=== PATIENT | male | born 1960 | race African-American/Black ===

== ENCOUNTER 2019-12-16 12:55 | Inpatient (IN) | payer BC ==
[2019-12-16] MEDS ORDERED: KETOROLAC 15 MG/ML 1 ML VIAL IVP STA (13:18)
--- NOTE | 2019-12-16 13:22 | ED ---
General Adult HPI - General Chief complaint: Skin/Abscess/Foreign Body Stated complaint: Poss R Hand Infection Time Seen by Provider: 12/16/19 13:10 Source: patient, RN notes reviewed, old records reviewed Mode of arrival: ambulatory Limitations: no limitations - History of Present Illness Initial comments: 59-year-old male presenting with right wrist and hand pain. Patient's symptoms began approximately 3 weeks ago with some minimal pain and swelling. He was seen by his primary care physician earlier this week and started on Bactrim. His been on Bactrim for 4 days. He denies fever. He denies constitutional symptoms. Pain is localized to the right wrist. He does not remember any injury or overuse. Patient is a diabetic. - Related Data Home Medications Medication Instructions Recorded Confirmed Insulin Glargine,Hum.rec.anlog 44 units SQ DAILY 12/16/19 12/16/19 [Toujeo Max Solostar] Liraglutide [Victoza 3-Carl] 1.2 mg SQ DAILY 12/16/19 12/16/19 Lisinopril-Hctz 20-25 mg 1 tab PO DAILY 12/16/19 12/16/19 [Zestoretic 20-25] Pravastatin Sodium [Pravachol] 40 mg PO DAILY 12/16/19 12/16/19 Sulfamethox-Tmp 800-160Mg [Bactrim 1 tab PO Q12HR 12/16/19 12/16/19 DS 800-160 mg] glipiZIDE/METFORMIN HCL 2 tab PO 5XD 12/16/19 12/16/19 [glipiZIDE/METFORMIN HCL 5-500 mg] Allergies Allergy/AdvReac Type Severity Reaction Status Date / Time No Known Allergies Allergy Verified 12/16/19 15:07 Review of Systems ROS Statement: Those systems with pertinent positive or pertinent negative responses have been documented in the HPI. ROS Other: All systems not noted in ROS Statement are negative. Past Medical History Past Medical History: Diabetes Mellitus, Hypertension History of Any Multi-Drug Resistant Organisms: None Reported Past Surgical History: Orthopedic Surgery Additional Past Surgical History / Comment(s): yamileth shoulder Past Psychological History: No Psychological Hx Reported Smoking Status: Never smoker Past Alcohol Use History: None Reported Past Drug Use History: None Reported General Exam Limitations: no limitations General appearance: alert, in no apparent distress Head exam: Present: atraumatic, normocephalic Eye exam: Present: normal appearance, PERRL ENT exam: Present: normal exam Neck exam: Present: normal inspection. Absent: tenderness, meningismus Respiratory exam: Present: normal lung sounds bilaterally. Absent: respiratory distress, wheezes Cardiovascular Exam: Present: regular rate, normal rhythm GI/Abdominal exam: Present: soft. Absent: distended, tenderness, guarding Extremities exam: Present: other (Right upper extremity, tenderness over the palmar surface of the right wrist, and range of motion at the wrist elicits severe pain. Range of motion of the fingers within normal limits. There is soft tissue swelling over the wrist as well.) Neurological exam: Present: alert, oriented X3, CN II-XII intact. Absent: motor sensory deficit Psychiatric exam: Present: normal affect, normal mood Skin exam: Present: warm, dry, other. Absent: cyanosis, diaphoretic Course Vital Signs 12/16/19 13:06 Temperature 98.2 F Pulse Rate 88 Respiratory 20 Rate Blood Pressure 173/84 O2 Sat by Pulse 99 Oximetry Medical Decision Making - Medical Decision Making 59-year-old male presenting with worsening right wrist pain, patient is started on antibiotics approximately 5 days ago. No fever. Patient is nontoxic with stable vitals. He has mild leukocytosis 11.5, mild hyperglycemia and elevated serum creatinine of 2.0. He has a elevated CRP at 18. LFTs been on antibiotics was still concern for either septic arthritis or deep space infection. There is no drainable abscess on exam. X-ray negative for fracture dislocation, no acute bony abnormality. Ultrasound negative for DVT but does show fluid collection that is likely the cause of the patient's pain. Case is discussed with orthopedics and patient is evaluated by Richmond Bernal, case discussed with the admitting physician Dr. Velasquez agreeable with admission with both orthopedics and infectious disease on consult. IV antibiotics have been initiated. - Lab Data Result diagrams: 12/16/19 14:02 12/16/19 14:02 Lab Results 12/16/19 12/16/19 12/16/19 Range/Units 14:02 14:02 14:02 WBC 11.5 H (3.8-10.6) k/uL RBC 4.54 (4.30-5.90) m/uL Hgb 12.6 L (13.0-17.5) gm/dL Hct 38.3 L (39.0-53.0) % MCV 84.3 (80.0-100.0) fL MCH 27.7 (25.0-35.0) pg MCHC 32.9 (31.0-37.0) g/dL RDW 13.3 (11.5-15.5) % Plt Count 348 (150-450) k/uL Neutrophils % 71 % Lymphocytes % 20 % Monocytes % 3 % Eosinophils % 5 % Basophils % 1 % Neutrophils # 8.2 H (1.3-7.7) k/uL Lymphocytes # 2.2 (1.0-4.8) k/uL Monocytes # 0.3 (0-1.0) k/uL Eosinophils # 0.6 (0-0.7) k/uL Basophils # 0.1 (0-0.2) k/uL Sodium 136 L (137-145) mmol/L Potassium 4.7 (3.5-5.1) mmol/L Chloride 102 (98-107) mmol/L Carbon Dioxide 24 (22-30) mmol/L Anion Gap 10 mmol/L BUN 20 (9-20) mg/dL Creatinine 2.00 H (0.66-1.25) mg/dL Est GFR (CKD-EPI)AfAm 41 (>60 ml/min/1.73 sqM) Est GFR (CKD-EPI)NonAf 36 (>60 ml/min/1.73 sqM) Glucose 240 H (74-99) mg/dL Plasma Lactic Acid Kyree 1.4 (0.7-2.0) mmol/L Calcium 9.7 (8.4-10.2) mg/dL Magnesium 2.1 (1.6-2.3) mg/dL Total Bilirubin 0.4 (0.2-1.3) mg/dL AST 20 (17-59) U/L ALT 15 (4-49) U/L Alkaline Phosphatase 100 (38-126) U/L C-Reactive Protein 18.5 H (<10.0) mg/L Total Protein 7.2 (6.3-8.2) g/dL Albumin 4.2 (3.5-5.0) g/dL Disposition Clinical Impression: Wrist pain, acute, Septic arthritis Disposition: ADMITTED IP TO THIS HOSP Condition: Stable Is patient prescribed a controlled substance at d/c from ED?: No Referrals: Nestor Velasquez DO [Primary Care Provider] - 1-2 days Decision to Admit Reason: Admit from EC Decision Date: 12/16/19 Decision Time: 15:27
--- NOTE | 2019-12-16 13:49 | XR ---
EXAMINATION TYPE: XR wrist complete RT DATE OF EXAM: 12/16/2019 CLINICAL HISTORY: Wrist pain and swelling for 3 days. No known injury. TECHNIQUE: Frontal, lateral and oblique images of the right wrist are obtained. COMPARISON: None FINDINGS: There is no acute fracture/dislocation evident in the right wrist. The joint spaces in th e right wrist appear within normal limits. No significant change change. Normal osseous mineralizatio n. Calcified vascular atherosclerotic disease. The overlying soft tissue appears unremarkable. IMPRESSION: There is no acute fracture or dislocation in the right wrist.
[2019-12-16 14:23] LABS: Basophils # (A) 0.1 k/uL (0-0.2); Basophils % (A) 1 %; Eosinophils # (A) 0.6 k/uL (0-0.7); Eosinophils % (A) 5 %; HCT 38.3 % (39.0-53.0); HGB 12.6 gm/dL (13.0-17.5); Lymphocytes # (A) 2.2 k/uL (1.0-4.8); Lymphocytes % (A) 20 %; MCH 27.7 pg (25.0-35.0); MCHC 32.9 g/dL (31.0-37.0); MCV 84.3 fL (80.0-100.0); Mean Platelet Volume 7.8; Monocytes # (A) 0.3 k/uL (0-1.0); Monocytes % (A) 3 %; Neutrophils # (A) 8.2 k/uL (1.3-7.7); Neutrophils % (A) 71 %; Platelet Count 348 k/uL (150-450); RBC 4.54 m/uL (4.30-5.90); RDW 13.3 % (11.5-15.5); WBC 11.5 k/uL (3.8-10.6)
[2019-12-16 14:35] LABS: Albumin 4.2 g/dL (3.5-5.0); C Reactive Protein 18.5 mg/L (<10.0); Calcium 9.7 mg/dL (8.4-10.2); Magnesium 2.1 mg/dL (1.6-2.3); Potassium 4.7 mmol/L (3.5-5.1); Total Bilirubin 0.4 mg/dL (0.2-1.3); Total Protein 7.2 g/dL (6.3-8.2)
[2019-12-16] MEDS ORDERED: SODIUM CHLORIDE 0.9% 500 ML 500 ML IV ONE (14:38)
[2019-12-16] MEDS ORDERED: HYDROmorphone 0.5 MG/0.5 ML SYRINGE IVP PRN (15:11)
[2019-12-16] MEDS ORDERED: NALOXONE 0.4 MG/ML 1 ML VIAL IV PRN (15:11)
[2019-12-16] MEDS ORDERED: CLINDAMYCIN 600 MG in DEXTROSE 5% IN WATER 50 ML IVPB STA ×2 (15:11)
--- NOTE | 2019-12-16 15:13 | US ---
EXAMINATION TYPE: US venous doppler duplex UE RT DATE OF EXAM: 12/16/2019 COMPARISON: NONE CLINICAL HISTORY: Arm swelling. Patient denies arm swelling, just hand right swelling x 2 weeks witho ut trauma, surgery or IV here. SIDE PERFORMED: Right Right Arm: Normal flow, compressibility, and vascular waveforms. Negative for deep venous thrombosis. Negative for reversible venous thrombosis. At the volar right hand, ulnar aspect of the base, there is subcutaneous edema and subcutaneous fluid collection measuring approximately 3.2 x 2.0 x 0.6 cm. IMPRESSION: 1. No evidence of deep or superficial venous thrombosis. 2. At the ulnar side of the volar base of the hand, there is subcutaneous edema and subcutaneous foca l fluid collection measuring approximately 3.2 x 2.0 x 0.6 cm. Contrast-enhanced CT examination of th e wrist may be of benefit.
[2019-12-16] MEDS ORDERED: VANCOMYCIN IV PER PHARMACY 1 EACH MISC MISCELLANE PRN (15:15)
[2019-12-16] MEDS ORDERED: VANCOMYCIN 1,750 MG in SODIUM CHLORIDE 0.9% 500 ML 500 ML IVPB ONE (15:30)
--- NOTE | 2019-12-16 15:46 | P.CNOR ---
History of Present Illness - [facility] Consult date: 12/16/19 Consult reason: joint pain History of present illness: Patient is a 59-year-old male who presented to [facility] today with regards to pain involving his right wrist. Patient admits over the last 3 weeks she's had swelling and discomfort involving the right wrist. She denies any history of trauma or change in physical activity. He was evaluated by his primary care doctor earlier this week and started on Bactrim oral tablets. He states that the swelling has improved a little bit since they on antibiotics. Patient denies any previous surgeries on the right upper extremity. He denies any numbness or tingling involving the right upper extremity or left upper extremity. He denies any fevers or chills at this time. He denies any nausea or vomiting, stomach discomfort, chest pain or shortness of breath. I was contacted by the emergency room staff regarding the patient, there is con cern of possible septic arthritis involving the right wrist versus inflammatory arthropathy. Review of Systems Constitutional: Reports as per [facility] Past Medical History Past Medical History: Diabetes Mellitus, Hypertension History of Any Multi-Drug Resistant Organisms: None Reported Past Surgical History: Orthopedic Surgery Additional Past Surgical History / Comment(s): yamileth shoulder Past Psychological History: No Psychological Hx Reported Smoking Status: Never smoker Past Alcohol Use History: None Reported Past Drug Use History: None Reported Medications and Allergies Home Medications Medication Instructions Recorded Confirmed Type Insulin Glargine,Hum.rec.anlog 44 units SQ DAILY 12/16/19 12/16/19 History [Sandra Reddy] Liraglutide [Victoza 3-Carl] 1.2 mg SQ DAILY 12/16/19 12/16/19 History Lisinopril-Hctz 20-25 mg 1 tab PO DAILY 12/16/19 12/16/19 History [Zestoretic 20-25] Pravastatin Sodium [Pravachol] 40 mg PO DAILY 12/16/19 12/16/19 History Sulfamethox-Tmp 800-160Mg [Bactrim 1 tab PO Q12HR 12/16/19 12/16/19 History DS 800-160 mg] glipiZIDE/METFORMIN HCL 2 tab PO 5XD 12/16/19 12/16/19 History [glipiZIDE/METFORMIN HCL 5-500 mg] Allergies Allergy/AdvReac Type Severity Reaction Status Date / Time No Known Allergies Allergy Verified 12/16/19 15:07 Physical Examination Right upper extremity: No obvious open lesions or sores are present throughout the extremity There is obvious swelling and skin discoloration on the volar aspect of the distal wrist at the radiocarpal and ulnar carpal joint. There is also swelling on the dorsal aspect of the hand between the thenar and hyperthenar eminence. Tenderness with palpation in those areas as noted patient is able to wiggle all the fingers with no difficulty, he is able to make a full fist There are no obvious skin changes or areas of soft tissue swelling on the dorsal aspect of the hand Sensory exam to light touch throughout the extremity is intact Radial and ulnar pulses are 2+ Results - Labs Labs: Abnormal Lab Results - Last 24 Hours (Table) 12/16/19 12/16/19 Range/Units 14:02 14:02 WBC 11.5 H (3.8-10.6) k/uL Hgb 12.6 L (13.0-17.5) gm/dL Hct 38.3 L (39.0-53.0) % Neutrophils # 8.2 H (1.3-7.7) k/uL Sodium 136 L (137-145) mmol/L Creatinine 2.00 H (0.66-1.25) mg/dL Glucose 240 H (74-99) mg/dL C-Reactive Protein 18.5 H (<10.0) mg/L H & H 12/16/19 Range/Units 14:02 Hgb 12.6 L (13.0-17.5) gm/dL Hct 38.3 L (39.0-53.0) % Result Diagrams: 12/16/19 14:02 12/16/19 14:02 - Diagnostic results Wrist/Hand x-ray: report reviewed, image reviewed Assessment and Plan Assessment: Right wrist pain/swelling Possible right wrist septic arthritis versus inflammatory arthropathy Other medical comorbidities Plan: Imaging: X-rays of the right hand were reviewed along with the report, no acute fractures or dislocations are noted. No obvious foreign bodies were appreciated Doppler of the right upper extremity demonstrated a fluid collection at the ulnar side of the volar base of the hand Plan: I was able to discuss the case, including most physical exam findings, labs and imaging studies my attending Dr. Saldana. Plan this point is to admit the patient to the hospital and under internal medicine, our orthopedic team and infectious disease will be placed on consult. MRI with and without contrast will be ordered of the right wrist Uric acid level will be checked Broad-spectrum IV antibiotics until infectious disease recommendations Patient will be made nothing by mouth after midnight prophylaxis Other medical specialty recommendations Further recommendations to follow
[2019-12-16] MEDS: SODIUM CHLORIDE 0.9% 1,000 ML IV SCH (16:02)
[2019-12-16 16:54] LABS: Glucose,Whole Blood 207 mg/dL (75-99)
[2019-12-16] MEDS ORDERED: glipiZIDE 10 MG TAB PO ONE (19:30)
[2019-12-16] MEDS ORDERED: metFORMIN 500 MG TAB PO ONE (19:30)
[2019-12-16] MEDS: ONDANSETRON 4 MG/2 ML VIAL IVP PRN (19:59)
[2019-12-16] MEDS ORDERED: NON FORMULARY DRUG (Glipizide/Metformin Hcl [Glipizide/Metformin Hcl 5-500 Mg] 1 EACH Tabl PO SCH (20:00)
[2019-12-16] MEDS ORDERED: GLIPIZIDE PO SCH (22:00)
[2019-12-16] MEDS ORDERED: METFORMIN HCL PO SCH (22:00)
[2019-12-16] MEDS ORDERED: [UNRECOGNIZED DRUG - OTHER] PO SCH (22:00)
--- NOTE | 2019-12-16 23:58 | P.CONS ---
History of Present Illness - Reason for Consult Consult date: 12/16/19 Left wrist infection Requesting physician: Lane Guillen - Chief Complaint Left wrist pain and swelling x weeks - History of Present Illness Patient is a 59 year old -[place] male presenting to the ER at [facility] for evaluation of the right wrist and hand pain that has been going on for the last few weeks patient denies having any history of trauma to the area or any fall patient mentioning there was any area of swelling on the palmar aspect of his right hand at the base of the thumb and subsequently noticed her having pain and swelling to the wrist area with some extension on the dorsum aspect of his right hand patient describing the pain to be throbbing intensity is almost 6-7 out of 10 and no radiation currently do not have any of her wound or any drainage did have some chills but denies high-grade fever with these symptoms the patient was evaluated by the ER physician on arrival to the ER, the patient was afebrile he did have mildly elevated white count and elevated CRP patient did have x-rays of the hand and wrist which was negative patient did have ultrasound which was negative for DVT however on the ulnar side of the volar base of the hand patient was noticed to have 3. 2X2.0X 0.6 cm fluid collection with concern for possible abscess patient has been started on vancomycin and admitted to the hospital orthopedics has seen the patient and planning for MRI tomorrow infectious disease was consulted for further man agement of antibiotic therapy Review of Systems Positive point has been mentioned in the HPI rest of the systems are negative Past Medical History Past Medical History: Diabetes Mellitus, Hypertension History of Any Multi-Drug Resistant Organisms: None Reported Past Surgical History: Orthopedic Surgery Additional Past Surgical History / Comment(s): yamileth shoulder, 2001 r knee surgery Past Anesthesia/Blood Transfusion Reactions: No Reported Reaction Past Psychological History: No Psychological Hx Reported Smoking Status: Never smoker Past Alcohol Use History: None Reported Past Drug Use History: None Reported - Past Family History Mother Family Medical History: Diabetes Mellitus Medications and Allergies Home Medications Medication Instructions Recorded Confirmed Type Insulin Glargine,Hum.rec.anlog 44 units SQ DAILY 12/16/19 12/16/19 History [Toujeo Max Solostar] Liraglutide [Victoza 3-Carl] 1.2 mg SQ DAILY 12/16/19 12/16/19 History Lisinopril-Hctz 20-25 mg 1 tab PO DAILY 12/16/19 12/16/19 History [Zestoretic 20-25] Pravastatin Sodium [Pravachol] 40 mg PO DAILY 12/16/19 12/16/19 History Sulfamethox-Tmp 800-160Mg [Bactrim 1 tab PO Q12HR 12/16/19 12/16/19 History DS 800-160 mg] glipiZIDE/METFORMIN HCL 2 tab PO 5XD 12/16/19 12/16/19 History [glipiZIDE/METFORMIN HCL 5-500 mg] Allergies Allergy/AdvReac Type Severity Reaction Status Date / Time No Known Allergies Allergy Verified 12/16/19 15:07 Physical Exam Vitals: Vital Signs Temp Pulse Pulse Resp BP BP Pulse Ox 12/16/19 16:24 99 F 76 18 168/83 100 12/16/19 15:45 99.4 F 75 18 178/98 100 12/16/19 13:06 98.2 F 88 20 173/84 99 Intake and Output 12/16/19 12/16/19 12/16/19 06:59 14:59 22:59 Other: Weight 110.677 kg 110.677 kg GENERAL DESCRIPTION: Middle-aged male lying in bed, no distress. No tachypnea or accessory muscle of respiration use. HEENT: Shows Pallor , no scleral icterus. Oral mucous membrane is dry. No pharyngeal erythema or thrush NECK: Trachea central, no thyromegaly. LUNGS: Unlabored breathing. Clear to auscultation anteriorly. 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 HEART: S1, S2, regular rate and rhythm. No loud murmur ABDOMEN: Soft, no tenderness , guarding or rigidity, no organomegaly EXTREMITIES: Right wrist area currently with no open wound minimal swelling no redness no drainage SKIN: No rash, no masses palpable. NEUROLOGICAL: The patient is awake, alert, oriented x3, mood and affect normal. Results CBC & Chem 7: 12/16/19 14:02 12/16/19 14:02 Labs: Abnormal Lab Results - Last 24 Hours (Table) 12/16/19 12/16/19 12/16/19 Range/Units 14:02 14:02 16:53 WBC 11.5 H (3.8-10.6) k/uL Hgb 12.6 L (13.0-17.5) gm/dL Hct 38.3 L (39.0-53.0) % Neutrophils # 8.2 H (1.3-7.7) k/uL Sodium 136 L (137-145) mmol/L Creatinine 2.00 H (0.66-1.25) mg/dL Glucose 240 H (74-99) mg/dL POC Glucose (mg/dL) 207 H (75-99) mg/dL C-Reactive Protein 18.5 H (<10.0) mg/L Assessment and Plan Assessment: 1- patient presented to the hospital with right wrist pain and swelling in this patient did have mildly elevated white count and CRP and abnormal ultrasound with evidence of fluid collection concerning for possible abscess need to cover for the gram-positive skin nely with a likely pathogen and is failing outpatient oral Bactrim DS therapy (1) Septic arthritis Current Visit: Yes Status: Acute Code(s): M00.9 - PYOGENIC ARTHRITIS, UNSPECIFIED SNOMED Code(s): 682426278 (2) Wrist pain, acute Current Visit: Yes Status: Acute Code(s): M25.539 - PAIN IN UNSPECIFIED W RIST SNOMED Code(s): 37470773 Plan: 1- await MRI of the right wrist 2-await possible surgical drainage and the fluid should be sent for cultures 3-Vancomycin pharmacy to dose target trough of 15 while watching kidney function and Vanco trough closely We will follow on clinical condition and cultures to further adjust medication if needed Thank you for this consultation will follow this patient with you
[2019-12-17] MEDS: SODIUM CHLORIDE 0.9% 1,000 ML IV SCH ×2 (05:52→17:54)
[2019-12-17 07:50] LABS: Glucose,Whole Blood 224 mg/dL (75-99)
[2019-12-17] MEDS: (Liraglutide [Victoza 3-Pak] 0.6 MG/0.1 ML Pen.Injctr) SQ SCH (08:07)
[2019-12-17] MEDS: INSULIN DETEMIR (LEVEMIR) 100 UNIT/ML SYR SQ SCH (08:15)
[2019-12-17] MEDS: PRAVASTATIN SODIUM 40 MG TAB PO SCH (08:15)
[2019-12-17] MEDS: lisinopriL 20 MG TAB PO SCH (08:15)
[2019-12-17] MEDS ORDERED: LISINOPRIL-HCTZ 20-25 MG 1 EACH TAB PO SCH (09:00)
[2019-12-17 11:56] LABS: Glucose,Whole Blood 180 mg/dL (75-99)
[2019-12-17] MEDS: INSULIN ASPART (NovoLOG) 100 UNIT/ML VIAL SQ SCH ×3 (12:52→20:38)
--- NOTE | 2019-12-17 14:23 | P.HPIM ---
History of Present Illness H&P Date: 12/17/19 Chief Complaint: Right wrist/ palm edema, induration Is a 59-year-old gentleman with medical history of diabetes mellitus, hypertension, obesity admitted with worsening right wrist and hand edema. Reports started 3 weeks ago. Proceeded to his PCP's office on Friday, received Rocephin 1 g injection and started on Bactrim. Uric acid reported as negative from PCP office. Extremity edema worsened. Denies numbness or tingling. Positive fine motor of affected extremity. Denies pain. Denies fever. Denies trauma. T-max 99.4, and ABC 11.5. Creatinine 2.09. CRP elevated, 18. X-ray reported no acute fracture or dislocation of the right wrist with overlying soft tissue unremarkable. Venous Doppler of right upper extremity reported no evidence of DVT or superficial venous thrombus, ulnar side of the volar base of hand, subcutaneous edema, subcutaneous focal fluid collection measuring 3.2 x 2.0 x 0.6 cm. IV antibiotics initiated. Review of Systems Constitutional: Denied any fatigue denied any fever. Cardio vascular: denied any chest pain, palpitations Gastrointestinal denied any nausea vomiting Pulmonary: Denied any shortness of breath cough Neurologic denied any new focal deficits ROS Statement: Those systems with pertinent positive or pertinent negative responses have been documented in the HPI. ROS Other: All systems not noted in ROS Statement are negative. Past Medical History Past Medical History: Diabetes Mellitus, Hypertension History of Any Multi-Drug Resistant Organisms: None Reported Past Surgical History: Orthopedic Surgery Additional Past Surgical History / Comment(s): yamileth shoulder, 2001 r knee surgery Past Anesthesia/Blood Transfusion Reactions: No Reported Reaction Past Psychological History: No Psychological Hx Reported Smoking Status: Never smoker Past Alcohol Use History: None Reported Past Drug Use History: None Reported - Past Family History Mother Family Medical History: Diabetes Mellitus Medications and Allergies Home Medications Medication Instructions Recorded Confirmed Type Insulin Glargine,Hum.rec.anlog 44 units SQ DAILY 12/16/19 12/16/19 History [Toujeo Mt Solostar] Liraglutide [Victoza 3-Carl] 1.2 mg SQ DAILY 12/16/19 12/16/19 History Lisinopril-Hctz 20-25 mg 1 tab PO DAILY 12/16/19 12/16/19 History [Zestoretic 20-25] Pravastatin Sodium [Pravachol] 40 mg PO DAILY 12/16/19 12/16/19 History Sulfamethox-Tmp 800-160Mg [Bactrim 1 tab PO Q12HR 12/16/19 12/16/19 History DS 800-160 mg] glipiZIDE/METFORMIN HCL 2 tab PO 5XD 12/16/19 12/16/19 History [glipiZIDE/METFORMIN HCL 5-500 mg] Allergies Allergy/AdvReac Type Severity Reaction Status Date / Time No Known Allergies Allergy Verified 12/16/19 15:07 Physical Exam Vitals: Vital Signs Temp Pulse Pulse Resp BP BP Pulse Ox 12/17/19 04:53 98.1 F 77 18 162/89 97 12/17/19 00:00 16 12/16/19 19:55 98.2 F 67 16 190/94 96 12/16/19 16:24 99 F 76 18 168/83 100 12/16/19 15:45 99.4 F 75 18 178/98 100 12/16/19 13:06 98.2 F 88 20 173/84 99 Intake and Output 12/16/19 12/17/19 12/17/19 22:59 06:59 14:59 Intake Total 660 600 Output Total 200 Balance 460 600 Intake: Intake, IV Titration 300 600 Amount Sodium Chloride 0.9% 1, 300 600 000 ml @ 75 mls/hr IV . [id number] VIC Rx#:[id number] Oral 360 Output: Oral Regurgitation 200 Other: # Voids 1 1 Weight 110.677 kg PHYSICAL EXAM: VITAL SIGNS: As above GENERAL: Sitting up in bed, no acute distress HEENT: Conjunctivae normal. eyes normal. NECK: No JVD. No thyroid enlargement. No LNs CARDIOVASCULAR: S1, S2 regular.. No murmur RESPIRATION: Breath sounds diminished in the bases. No rhonchi or crackles. ABDOMEN: Soft, nontender . No guarding. no masses palpable. Positive Bowel sounds. EXTREMITIES: Right wrist and hand edema,palm induration without open wounds, with fine motor intact. Positive radial pulse. Capillary refill less than 2 seconds.Bilateral lower extremities with no edema. no swelling. PSYCHIATRY: Alert and oriented X3, mood and affect normal. NERVOUS SYSTEM: Cranial N 2-12 grossly normal. Moves all 4 limbs. No focal deficits. Strength and sensation grossly intact.. Skin: Warm and dry, no rash. Lymphatic system. No LN neck axilla. Results CBC & Chem 7: 12/16/19 14:02 12/16/19 14:02 Labs: Abnormal Lab Results - Last 24 Hours (Table) 12/16/19 12/16/19 12/16/19 Range/Units 14:02 14:02 16:53 WBC 11.5 H (3.8-10.6) k/uL Hgb 12.6 L (13.0-17.5) gm/dL Hct 38.3 L (39.0-53.0) % Neutrophils # 8.2 H (1.3-7.7) k/uL Sodium 136 L (137-145) mmol/L Creatinine 2.00 H (0.66-1.25) mg/dL Glucose 240 H (74-99) mg/dL POC Glucose (mg/dL) 207 H (75-99) mg/dL C-Reactive Protein 18.5 H (<10.0) mg/L 12/17/19 Range/Units 07:48 WBC (3.8-10.6) k/uL Hgb (13.0-17.5) gm/dL Hct (39.0-53.0) % Neutrophils # (1.3-7.7) k/uL Sodium (137-145) mmol/L Creatinine (0.66-1.25) mg/dL Glucose (74-99) mg/dL POC Glucose (mg/dL) 224 H (75-99) mg/dL C-Reactive Protein (<10.0) mg/L Thrombosis Risk Factor Assmnt - Choose All That Apply Each Factor Represents 1 point: Obesity (BMI >25) Thrombosis Risk Factor Assessment Total Risk Factor Score: 1 Thrombosis Risk Factor Assessment Level: Low Risk Assessment and Plan Assessment: Sepsis secondary to worsening subacute right wrist edema , possible septic arthritis, possible abscess, failed outpatient treatment Leukocytosis secondary to above Acute renal failure, possibly medication induced, patient had been on Bactrim Diabetes mellitus Hypertension Obesity, BMI 36 Plan: Continue on current medication regime ,monitoring and symptomatic treatment. IV fluid hydration .Potential I&D with orthopedics pending MRI of hand and wrist. Maintained on IV antibiotics as per ID. GI and DVT prophylaxis in place. Home meds reviewed and resumed accordingly. Avoid nephrotoxic agents. The impression and plan of care has been dictated as directed. : I performed a history and examination of this patient, discussed the same with the dictator. I agree with the dictator's note ,documented as a scribe. Any additional findings or plans will be noted.
[2019-12-17] MEDS ORDERED: PANTOPRAZOLE 40 MG/10 ML VIAL IVP SCH (14:24)
[2019-12-17] MEDS ORDERED: IV FLUID CONTINUATION 850 ML IV ONE (14:47)
[2019-12-17 14:54] LABS: Glucose,Whole Blood 161 mg/dL (75-99)
--- NOTE | 2019-12-17 15:08 | P.PN ---
Progress Note - Text Progress Note Date: 12/17/19 Orthopedic Surgery Risk Review Huber Mason is a 59-year-old male presenting for evaluation of sudden onset left hand and wrist pain, pain with motion and swelling over the carpal tunnel. It was my pleasure to have seen and examined Huber Mason. In our visit today we have had a chance to go over subjective complaints, physical examination findings and treatments including the natural course history without intervention and various interventional options. his imaging demonstrates loculated subcu edema over the hyperthenar evidence with possible tracking into the carpal tunnel however there is no large fluid collection that can be seen.. On physical exam, Huber Mason demonstrates pain with motion of the hand and wrist with exquisite tenderness to palpation over the hyperthenar eminence and subcu region of the carpal tunnel, which is NV intact at this time. I have explained to the patient that this fracture needs stabilization. Based on the patients imaging, physical exam, and the rapid progression and disabling nature of her symptoms, at this time I recommend surgery in the form or a: Incision and debridement with possible carpal tunnel release right hand I discussed the risk and benefits of this procedure at length with Huber Mason and his . Questions were invited and answered, and the patient wishes to proceed as outlined below. Currently, I am recommendin. Incision and drainage of right hand hyperthenar eminence with possible carpal tunnel release right 2. Review of surgical risks and benefits as well as an educational packet on the proposed surgical procedure. Risks: All surgical procedures come with inherent risks, including those related to positioning, anesthesia, intraoperative findings, and postoperative complications. It is important to understand that surgery does not come with any guarantee of a successful outcome as complications and adverse events are always possible. The patient was given a handout discussing the surgical procedure and risks associated with the intervention, both of which were discussed with the patient. These risks include but are not limited to the following: - Experiencing same, different or even worse symptoms compared to before surgery. - Requiring further surgery or other forms of treatment presently or at some time in the future . - On an extreme but fortunately relatively rare basis severe complication such as blindness, stroke, heart attack, temporary and/or permanent nerve injury, paralysis, coma, or may occur, sometimes without known explanation. - Surgical complications may include but are not limited to risk of infection, fluid accumulation in the surgical dissection site, including a seroma or hematoma, that requires additional surgery, wound drainage, bleeding, new numbness or weakness, vision changes/loss, spinal fluid leakage, non-healing and/or infected incision, headaches, difficulty or inability to swallow, hoarseness, hemopneumothorax, pneumothorax, injury to nerves, spinal cord, blood vessels, lymphatics or other vital organs (i.e., bowel injury, injury to the great vessels); heterotopic bone formation; complications related to the hardware such as screws, rods, including misplaced hardware, device failure, hardware fracture/breakage, or hardware loosening; retained surgical instrumentations or devices and the need for further surgery. - Medical risks of the planned surgery include but are not limited to generalized Infections to the whole body or local areas outside of the surgical site (sepsis), heart attack, bleeding, anaphylaxis, meningitis, seizure, epilepsy, hearing loss, burn silva, laceration of the head or other areas of the body, bruising, hypersensitivity of the skin, bladder over distension; allergic reaction; shoulder injury related to positioning; fat, blood and air clots to other areas of the body like heart, lungs, brain; failure of internal organs such as lungs, kidneys, liver and excessive bleeding. If blood transfusions are necessary, note that transfusions may cause intolerance reactions such as anaphylaxis or other complex reactions. Despite best efforts, the results of surgery might not heal in terms of bone, soft tissues such as skin, fascia, ligaments, and joints. [facility] is an educational center that serves as a training facility for physician assistants, nurses, orthopedic residents and fellows. Residents are physicians who are completing their surgical intensive training following medical school. They assist in the operating room with direct supervision of the attending surgeons. Leonidas are surgeons who have completed their training and eligible for board certification. They have opted for an elective year of more specialized training in their field. They assist in the operating room under the supervision of the attending surgeons. Physician assistants are dc dically trained surgical providers who function in the outpatient, inpatient, and operating room setting under the direct supervision of the attending surgeon. [facility] has multiple operating rooms with single and overlapping rooms running daily. They currently function under the required guidelines as produced by the [facility] Finance Committee with regards to the overlapping rooms and will continue to comply with changes to this policy as they occur. The requirements include and are complied with as follows: (1) the critical portions of the overlapping rooms will not occur at the same time, (2) the attending physician will be physically present during the critical portions of the procedure and immediately available during the entire case, and (3) a back-up attending is designated should the primary attending not be immediately available. The patient has had a chance to review all the listed information, has been given print outs detailing this information, and has had all his/her questions answered to their satisfaction. It was my pleasure to have seen and examined Huber Mason. In our visit today we have had a chance to go over my understanding of our patient's current condition, the natural course history without intervention and various interventional options. Questions were invited and answered, and the patient wishes to proceed as outlined above. I have seen and examined the patient for 25 minutes and we have spent more than 50% of the time in repeat and detailed counseling about the patient's condition, its natural course history with out and as much as can be predicted with surgery and re-review of various surgical treatment options. We discussed at length that while there is not a defined fluid collection there is a lot of subcutaneous edema in this area and is difficult to determine whether this is just loculated portions of an abscess or if it is simply edema. The patient is a lot of pain in this area however no pain over the carpal tunnel however he does not have any neurologic symptoms at this time. I discussed with him that we may not find anything and he still would like to proceed with the procedure. In conclusion, Huber Mason requested we proceed with the above suggested surgery and are willing to accept risks and limitations of the suggested surgery as nature of the disease process and our best attempts at treatment for the condition. Thank you again for allowing us to be part of your patient's care. Please don't hesitate to contact me if you have any further questions. Signed and authenticated by: Mat Covarrubias [facility] [address] [address]
[2019-12-17] MEDS ORDERED: LIDOCAINE 1% INJ 10MG/ML (20 ML MDV) ONE (15:19)
[2019-12-17] MEDS ORDERED: PROPOFOL 10 MG/ML 20 ML VIAL IV ONE (15:19)
[2019-12-17] MEDS ORDERED: MIDAZOLAM 2 MG/2 ML VIAL ONE (15:19)
[2019-12-17] MEDS ORDERED: fentaNYL (PF) 50 MCG/ML 2 ML AMP ONE (15:19)
[2019-12-17] MEDS ORDERED: BUPIVACAINE (PF) 0.5% 30 ML VIAL SQ ONE (15:25)
[2019-12-17 16:25] LABS: Glucose,Whole Blood 137 mg/dL (75-99)
[2019-12-17] MEDS ORDERED: KETOROLAC 15 MG/ML 1 ML VIAL IVP ONE (16:37)
[2019-12-17] MEDS: HYDROmorphone 1 MG/ML 1 ML SYRINGE IVP ONE ×2 (16:38→16:44)
[2019-12-17] MEDS ORDERED: hydrALAZINE HCL 20 MG/ML 1 ML VIAL IVP ONE (16:47)
--- NOTE | 2019-12-17 16:59 | MR ---
EXAMINATION TYPE: MR wrist RT wo con DATE OF EXAM: 12/17/2019 COMPARISON: None HISTORY: r/o wrist abscess Multiplanar multiecho imaging of the right wrist was performed without contrast. FINDINGS: There is diffuse subcutaneous edema around the carpus. Soft tissue swelling is more on the anterior a spect. The flexor and extensor tendons of the hand and wrist appear intact. There is no evidence of any significant wrist joint effusion. There is no evidence of a fracture. Int ercarpal joint spaces are fairly normal. The triangular cartilage appears intact. I see no focal bone destruction. The proximal metacarpals are intact. There are a few tiny degenerative cysts in the car pal bones in the lunate and trapezoid and triquetrum. I see no evidence of a discrete fluid collectio n to suggest an abscess. IMPRESSION: Diffuse subcutaneous edema around the carpus and proximal metacarpals consistent with cellulitis. Small degenerative cysts in the carpal bones. No evidence of any significant arthritic disease. No fr acture. No sign of osteomyelitis. No evidence of an abscess.
--- NOTE | 2019-12-17 17:03 | P.OP ---
Date of Procedure: 12/17/19 Preoperative Diagnosis: Right hand hyperthenar swelling and possible abscess, possible carpal tunnel fluid Postoperative Diagnosis: Right hand hyperthenar abscess, [place] tunnel involvement Procedure(s) Performed: 1. Incision and drainage of hyperthenar abscess right hand with a knife and curet and irrigation of skin and soft tissue. 2. Carpal tunnel release right Implants: None Anesthesia: MAC Surgeon: Mat Saldana Estimated Blood Loss (ml): 10 IV fluids (ml): 100 Urine output (ml): 0 Pathology: other (2 cultures with 1 tissue culture) Condition: stable Disposition: PACU Indications for Procedure: Patient is a 59 year old -[place] male presenting to the ER at [facility] for evaluation of the right wrist and hand pain that has been going on for the last few weeks patient denies having any history of trauma to the area or any fall patient mentioning there was any area of swelling on the palmar aspect of his right hand at the base of the thumb and subsequently no ticed her having pain and swelling to the wrist area with some extension on the dorsum aspect of his right hand patient describing the pain to be throbbing intensity is almost 6-7 out of 10 and no radiation currently do not have any of her wound or any drainage did have some chills but denies high-grade fever with these symptoms the patient was evaluated by the ER physician on arrival to the ER, the patient was afebrile he did have mildly elevated white count and elevated CRP patient did have x-rays of the hand and wrist which was negative patient did have ultrasound which was negative for DVT however on the ulnar side of the volar base of the hand patient was noticed to have 3. 2X2.0X 0.6 cm fluid collection with concern for possible abscess patient has been started on vancomycin and admitted to the hospital orthopedics has seen the patient and planning for MRI tomorrow infectious disease was consulted for further management of antibiotic therapy Operative Findings: Small amount of purulent material found in the hyperthenar region upon incision. Necrotic fat white tissue also seen. Carpal tunnel showed fluid collection however this did not show purulence. Transverse carpal ligament was extensively hypertrophied. Description of Procedure: The patient was seen and examined in the preoperative area. All preoperative protocols were followed. Informed consent was obtained risks and benefits of the procedure were discussed at length. Risks including bleeding infection damage to the surrounding tissue and risk of reoperation were discussed with the patient. Risk of anesthesia up to and including was a discussed with the patient. These are outlined in the risk reviewed. They were willing to accept these risks and all of the risks of surgery. The patient was given a weight- based dose of antibiotics in the form of vancomycin from which he is not due dosage entering at this time. The patient was seen and evaluated by the anesthesia team who deemed them fit for surgery. The site was marked, the patient was willing to proceed with the procedure. The patient was transferred to the operative suite by the Department of anesthesia. There were then drifted off to sleep by the department of anesthesia and LMA anesthesia was used. Once adequate anesthesia had been obtained the patient was carefully transferred to the operative bed. All bony prominences were padded accordingly. SCDs were placed on the nonoperative lower extremities. Arms were well padded. Right arm was exposed, a tourniquet was placed on the upper right arm and padded well. Arm board was placed on the right side of the patient's gurney. Preoperative briefing was done with the operative team and everyone was ready for the procedure to start. The patients right arm was then prepped and draped in the normal sterile fashion. Timeout was then performed and all parties in agreement with the procedure to be performed. Attention is drawn to the patient's right hypothenar eminence where a palpable fluctuance could be felt. Incision was made along the ulnar portion and proximal portion just distal to the wrist crease of the left hypothenar eminence. Tenotomy was then used for blunt dissection carefully down to the subcutaneous fat and palmar fascia to visualize the hyperthenar musculature once we made it through the skin the hyperthenar fat appeared somewhat necrotic and there was a small amount of purulence noted in the hyperthenar area which was cultured. Specimen was also sent of the hyperthenar fat as it looks necrotic and somewhat abnormal. Investigation of the surrounding area revealed the neurovascular bundle completely intact the hyperthenar musculature did not have any abnormal look to it surrounding area. Relatively normal although again the subcutaneous fat appeared necrotic and slightly disease. Attention was then drawn to the carpal tunnel. The tourniquet was inflated to 250 mmHg. Incision was marked out on the ulnar aspect of the ring finger proximal to Hawkins's cardinal line overlying the palmar crease. Incision was made longitudinally in this area and taken down to subcutaneous fat tenotomy was then used to dissect bluntly through the palmar fascia until the transverse carpal ligament was identified. Once identified sharp incision of this ligament was taken down to the carpal tunnel. The carpal ligament was extensively hypertrophied and once the carpal tunnel was encountered a flash of fluid was seen. This appeared clear and synovial in nature however was under pressure in the carpal tunnel. The carpal tunnel was then released distally under direct visualization of the carpal ligament with careful dissection above and below the ligament and care taken to protect the median nerve. The motor branch of the median nerve was visualized and intact. Attention was then drawn proximally to the proximal portion of the carpal ligament which was exposed superficially and deep the median nerve was well protected and the carpal ligament released. This was again checked and there was complete release of the carpal ligament proximally and distally. The tourniquet was then dropped at 11 minutes. There was good capillary refill and any bleeders in the subcu work electrocautery. Then 3 L of bacitracin irrigation were then run through the 2 incisions curet was used to continue debridement of the hyperthenar area as well as the subcutaneous tissue surrounding the carpal tunnel. Once thorough debridement and irrigation and completed the wounds were then closed using 4-0 nylon in a simple fashion. These were left slightly loose to allow for drainage. Silastic drains were placed into the wounds as well for continued drainage. This was then dressed with sterile Adaptic 4 x 4's fluffs Curlex and an Leoncio wrap. The patient was then awakened by department of anesthesia having tolerated the procedure very well with no complications. The patient was then transported to the postoperative care unit in stable condition.
[2019-12-17] MEDS ORDERED: SODIUM CHLORIDE 0.9% 1,000 ML IV ONE (17:08)
[2019-12-17] MEDS: PANTOPRAZOLE 40 MG/10 ML VIAL IVP SCH (17:52)
[2019-12-17] MEDS: VANCOMYCIN 1,750 MG in SODIUM CHLORIDE 0.9% 500 ML 500 ML IVPB SCH (17:56)
[2019-12-17] MEDS: ONDANSETRON 4 MG/2 ML VIAL IVP PRN (19:43)
[2019-12-17] MEDS: ACETAMINOPHEN TAB 325 MG TAB PO PRN (19:59)
[2019-12-17 20:32] LABS: Glucose,Whole Blood 150 mg/dL (75-99)
--- NOTE | 2019-12-17 23:18 | PN ---
PROGRESS NOTE DATE OF SERVICE: 12/17/2019 REASON FOR FOLLOWUP: Right hypothenar abscess. INTERVAL HISTORY: Patient is currently afebrile. Still complaining of pain to the right wrist and hand area. No worsening though. The patient denies having any chest pain. No shortness of breath or cough. No nausea. No vomiting. No abdominal pain. No diarrhea. PHYSICAL EXAMINATION: Blood pressure is 178/71 with a pulse of 85, temperature 98.1. He is 98% on room air. General description is a middle-aged male lying in bed in no distress. Respiratory system: Unlabored breathing, clear to auscultation anteriorly. Heart S1, S2. Regular rate and rhythm. ABDOMEN: Soft, no tenderness. LABS: No new labs have been obtained today. DIAGNOSTIC IMPRESSION AND PLAN: Patient with right hand hypothenar swelling with concern for underlying abscess status post I and D of this abscess. Culture has been obtained. Patient is covered with vancomycin, adjusting antibiotic further based on culture report. MMODL / IJN: [id number] /
[2019-12-18] MEDS: ACETAMINOPHEN TAB 325 MG TAB PO PRN ×3 (02:26→21:21)
[2019-12-18 06:35] LABS: Basophils % (A) 0 %; Eosinophils # (A) 0.5 k/uL (0-0.7); Eosinophils % (A) 6 %; HCT 34.7 % (39.0-53.0); HGB 11.3 gm/dL (13.0-17.5); Lymphocytes # (A) 1.9 k/uL (1.0-4.8); Lymphocytes % (A) 20 %; MCH 28.2 pg (25.0-35.0); MCHC 32.7 g/dL (31.0-37.0); MCV 86.3 fL (80.0-100.0); Mean Platelet Volume 8.3; Monocytes # (A) 0.4 k/uL (0-1.0); Monocytes % (A) 4 %; Neutrophils # (A) 6.8 k/uL (1.3-7.7); Neutrophils % (A) 69 %; Platelet Count 344 k/uL (150-450); RBC 4.02 m/uL (4.30-5.90); RDW 13.7 % (11.5-15.5); WBC 9.8 k/uL (3.8-10.6)
[2019-12-18 07:25] LABS: Glucose,Whole Blood 220 mg/dL (75-99)
[2019-12-18] MEDS: INSULIN DETEMIR (LEVEMIR) 100 UNIT/ML SYR SQ SCH (07:34)
[2019-12-18] MEDS: INSULIN ASPART (NovoLOG) 100 UNIT/ML VIAL SQ SCH ×4 (07:34→21:22)
--- NOTE | 2019-12-18 08:25 | P.PN ---
Subjective Progress Note Date: 12/18/19 Principal diagnosis: RIGHT hand abscess Pt s/e this AM. Doing OK. States pain in hand and wrist about a 5 which is better than before surgery. Denies any numbness or tingling. Denies any f/s/sob/cp. States he can move all fingers appropriately and that they feel good. Objective - Vital Signs Vital signs: Vital Signs Temp 98.1 F 12/18/19 05:21 Pulse 74 12/18/19 05:21 Resp 16 12/18/19 05:21 BP 166/89 12/18/19 05:21 Pulse Ox 98 12/18/19 05:21 Intake & Output 12/17/19 12/18/19 12/18/19 18:59 06:59 18:59 Intake Total 1500 725 Output Total 10 200 Balance 1490 525 Intake: IV 900 Intake, IV Titration 600 725 Amount Sodium Chloride 0.9% 1, 600 725 000 ml @ 75 mls/hr IV . [id number] VIC Rx#:[id number] Output: Emesis 200 Estimated Blood Loss 10 Other: Voiding Method Toilet Toilet # Voids 3 1 - Exam Dressing removed. Silastic drains removed. Incision is CDI. Sutures in place. No purulent drainage. FROM PIP/DIP/MCP joints all fingers SILT and two point in the med/rad/ulnar nerve distribution palpable radial and ulnar pulses. No pulsitile masses Cmpartments soft and compressible. Hand redressed with sterile 4x4 kerlix and marilin wrap. - Labs CBC & Chem 7: 12/18/19 06:20 12/16/19 14:02 Labs: Abnormal Lab Results - Last 24 Hours (Table) 12/17/19 12/17/19 12/17/19 Range/Units 11:46 14:52 16:23 RBC (4.30-5.90) m/uL Hgb (13.0-17.5) gm/dL Hct (39.0-53.0) % POC Glucose (mg/dL) 180 H 161 H 137 H (75-99) mg/dL 12/17/19 12/18/19 12/18/19 Range/Units 20:28 06:20 07:23 RBC 4.02 L (4.30-5.90) m/uL Hgb 11.3 L (13.0-17.5) gm/dL Hct 34.7 L (39.0-53.0) % POC Glucose (mg/dL) 150 H 220 H (75-99) mg/dL Microbiology - Last 24 Hours (Table) 12/17/19 16:05 Gram Stain - Preliminary Hand - Right Wound Culture - Preliminary 12/17/19 16:05 Gram Stain - Preliminary Hand - Right Wound Culture - Preliminary 12/17/19 16:05 Fungal Culture - Preliminary Hand - Right 12/17/19 16:05 Anaerobic Culture - Preliminary Hand - Right 12/17/19 16:05 Fungal Culture - Preliminary Hand - Right 12/17/19 16:05 Anaerobic Culture - Preliminary Hand - Right 12/16/19 14:02 Blood Culture - Preliminary Blood No Growth after 24 hours Assessment and Plan Assessment: 59 yo male pod 1 hypothenar eminence abscess drainage with CTR. Plan: 1. Pain control 2. ROM as tolerated of R hand 3. R/o ulnar artery aneurysm with CT angio of hand and wrist today 4. Hand therapy 5. DVT ppx 6. Will follow
[2019-12-18 09:10] LABS: African American GFR (CKD) 44.1 (60.0-200.0); Anion Gap 7.6 mmol/L (4.00-12.00); BUN/Creat Ratio 13.16 Ratio (12.00-20.00); Calcium 8.4 mg/dL (8.7-10.3); Carbon Dioxide 21.4 mmol/L (21.6-31.8); Potassium 4.4 mmol/L (3.5-5.5)
[2019-12-18] MEDS: PANTOPRAZOLE 40 MG/10 ML VIAL IVP SCH (09:10)
[2019-12-18] MEDS: PRAVASTATIN SODIUM 40 MG TAB PO SCH (09:10)
[2019-12-18] MEDS: lisinopriL 20 MG TAB PO SCH (09:10)
[2019-12-18] MEDS: (Liraglutide [Victoza 3-Pak] 0.6 MG/0.1 ML Pen.Injctr) SQ SCH (09:10)
[2019-12-18] MEDS: SODIUM CHLORIDE 0.9% 1,000 ML IV SCH ×2 (10:29→12:29)
[2019-12-18 11:41] LABS: Glucose,Whole Blood 296 mg/dL (75-99)
[2019-12-18] MEDS: amLODIPine 10 MG TAB PO SCH (12:52)
--- NOTE | 2019-12-18 14:08 | PN ---
PROGRESS NOTE DATE OF SERVICE: 12/18/2019 REASON FOR FOLLOWUP: Right hypothenar area abscess. INTERVAL HISTORY: Patient is currently afebrile. The patient is status post drainage of the abscess yesterday. Patient tolerated the procedure. The patient denies having any chest pain or shortness of breath or cough. No abdominal pain, no diarrhea. PHYSICAL EXAMINATION: Blood pressure is 166/89 with pulse of 74, temperature of 98.1. General description is a middle-aged male up in the chair in no distress. Respiratory system: Unlabored breathing, clear to auscultation anteriorly. Heart S1, S2. Regular rate and rhythm. Abdomen is soft, no tenderness. Right hand is currently dressed up. No obvious drainage on the dressing. LABS: Hemoglobin 11.9, white count 9.8, creatinine 1.9. Cultures so far pending. DIAGNOSTIC IMPRESSION AND PLAN: Patient with right hand hypothenar area abscess status post drainage. Culture is pending. Vanco to continue and will continue to monitor closely. Continue supportive care. MMODL / IJN: [id number] /
[2019-12-18] MEDS ORDERED: cloNIDine HCL 0.1 MG TAB PO PRN (16:19)
[2019-12-18] MEDS ORDERED: hydrALAZINE HCL 20 MG/ML 1 ML VIAL IVP PRN (16:19)
[2019-12-18] MEDS: cloNIDine HCL 0.1 MG TAB PO SCH ×2 (16:35→21:22)
[2019-12-18] MEDS: VANCOMYCIN 1,750 MG in SODIUM CHLORIDE 0.9% 500 ML 500 ML IVPB SCH (16:35)
--- NOTE | 2019-12-18 16:59 | PN ---
PROGRESS NOTE DATE OF SERVICE: 12/18/2019 I am covering for Dr. Velasquez. This 59-year-old gentleman admitted with right hypothenar area abscess, had incision and drainage. Cultures are negative so far. The patient complains of some pain. Because of concerns of vascular supply, MRI of the hand has been ordered. The patient also had symptoms for the last several weeks. The patient failed outpatient treatment with Bactrim. The white count is elevated at 9.8. Blood pressure is also significantly elevated. Creatinine is 1.9. The blood sugar is also elevated, indicating diabetes type 2. Past medical history reviewed. REVIEW OF SYSTEMS: Cardiovascular system: No angina or palpitations. Respiratory: As mentioned earlier. GI: As mentioned earlier. : No dysuria. NERVOUS SYSTEM: No numbness or weakness. CURRENT MEDICATIONS: Reviewed and include: 1. Tylenol. 2. Norvasc. 3. Catapres. 4. Apresoline. 5. Zestril. 6. Pravachol. 7. Protonix. PHYSICAL EXAM: Patient is alert and oriented times three. Pulse 76. Blood pressure 228/89, respirations 16, temperature 98.3, pulse ox 98% on room air. HEENT: Conjunctivae normal. NECK: No JVD. CARDIOVASCULAR: S1, S2 muffled. RESPIRATORY: Breath sounds diminished in the bases. No rhonchi. No crackles. ABDOMEN: Soft, nontender. LEGS is no edema. No swelling. NERVOUS SYSTEM: No focal deficits. Examination of the right hand status post surgery. LABS: WBC 9.8, hemoglobin 11.3, creatinine is 1.9. ASSESSMENT: 1. Right hypothenar abscess with carpal tunnel involvement, status post incision drainage with sepsis and failure of outpatient treatment present on admission. 2. Increased WBC. 3. Anemia, normocytic. 4. Accelerated hypertension with hypertensive urgency. 5. Hyponatremia. 6. Increased creatinine with acute renal failure with acute tubular necrosis with prerenal factors. 7. History of diabetes type 2. 8. History of degenerative joint disease, bilateral shoulder. 9. FULL CODE. 10.Obesity with body mass of 36. RECOMMENDATIONS AND DISCUSSION: Recommend to continue current management and symptomatic treatment. Otherwise at this time I recommend initiate Clonidine and hydralazine and Norvasc also. Monitor blood sugars closely. Cut down the IV fluids. Otherwise I would also recommend UA with micro. Otherwise, MRI per Orthopedic surgery. Further recommendations to follow. MMODL / IJN: [id number] /
[2019-12-18 17:13] LABS: Glucose,Whole Blood 307 mg/dL (75-99)
--- NOTE | 2019-12-18 17:58 | MR ---
EXAMINATION TYPE: MR hand RT wo/w con DATE OF EXAM: 12/18/2019 COMPARISON: HISTORY: rule out ulnar artery aneursym CONTRAST: Standard multiplanar, multisequence MRI departmental protocol utilizing 11 mL intravenous Gadavist ga dolinium contrast. Images were obtained from the radiocarpal joint to the mid fingers without and with IV contrast. There appears to be subcutaneous edema and soft tissue swelling around the middle finger and the ring finger and to a lesser extent the little finger. The thumb is intact. The metacarpals are intact. I see no focal bony destructive process. There is no evidence for fracture. There is no sign of a soft tissue discrete mass. The carpal bones are intact. The ulnar artery is not seen to best advantage. Va scular flow was not evaluated. Contrast images failed to show to best advantage the radial and ulnar arteries. IMPRESSION: There is subcutaneous edema around the fingers. No fracture seen. No soft tissue mass. This exam does not confirm or exclude the presence of ulnar artery aneurysm. Recommend ultrasound exa m or conventional angiography for further evaluation if clinically indicated. Exam limited due to pat ient pain.
[2019-12-18 20:59] LABS: Glucose,Whole Blood 232 mg/dL (75-99)
[2019-12-18 21:29] LABS: Appearance,Urine Clear (Clear); Bilirubin,Urine Negative (Negative); Blood,Urine Negative (Negative); Color,Urine Light Yellow; Glucose,Urine (UA) 4+ (Negative); Ketones,Urine Negative (Negative); Leukocyte Esterase,Urine Negative (Negative); Nitrite,Urine Negative (Negative); PH, Urine 5.5 (5.0-8.0); Protein,Urine Negative (Negative); Specific Gravity,Urine 1.013 (1.001-1.035); Urobilinogen,Urine <2.0 mg/dL (<2.0)
[2019-12-18 21:39] LABS: Amphetamine Screen,Urine Not Detected (NotDetected); Barbiturate Screen,Urine Not Detected (NotDetected); Benzodiazepines Screen,Urine Not Detected (NotDetected); Cocaine Screen,Urine Not Detected (NotDetected); Methadone Screen, Urine Not Detected (NotDetected); Opiate Screen,Urine Not Detected (NotDetected); Oxycodone Screen, Urine Not Detected (NotDetected); Phencyclidine Screen,Urine Not Detected (NotDetected); Tricyclic Antidepressant,Urine Not Detected (NotDetected); Urn Cannabinoid Scrn Not Detected (NotDetected)
[2019-12-19 07:04] LABS: Glucose,Whole Blood 85 mg/dL (75-99)
--- NOTE | 2019-12-19 07:43 | P.PN ---
Subjective Progress Note Date: 12/19/19 Principal diagnosis: RIGHT hand abscess Pt s/e this am. Walking around room. Feels better states hand feels better. Denies any numbness/tingling. Denies weakness. States his pain is better today. MRI done yesterday. Pt unable to have contrast due to BUN/Cr and kidney function. If better today would still recommend CTA of RIGHT hand and wrist to eval ulnar artery. Objective - Vital Signs Vital signs: Vital Signs Temp 97.6 F 12/19/19 05:37 Pulse 74 12/19/19 05:37 Resp 18 12/19/19 05:37 BP 159/75 12/19/19 05:37 Pulse Ox 99 12/19/19 05:37 Intake & Output 12/18/19 12/19/19 12/19/19 18:59 06:59 18:59 Intake Total 820 500 Balance 820 500 Intake: Intake, IV Titration 600 Amount Sodium Chloride 0.9% 1, 600 000 ml @ 75 mls/hr IV . [id number] [facility] Rx#:[id number] Oral 220 500 Other: Voiding Method Toilet Toilet # Voids 1 - Exam Dressing in place CDI. Incision is CDI. Sutures in place. No purulent drainage. FROM PIP/DIP/MCP joints all fingers SILT and two point in the med/rad/ulnar nerve distribution palpable radial and ulnar pulses. No pulsitile masses Compartments soft and compressible. Cap refill brisk and <2 sec all fingers - Neurologic Neurologic: Present: CNII-XII intact - Psychiatric Psychiatric: Present: A&O x's 3, appropriate affect, intact judgment & insight - Labs CBC & Chem 7: 12/18/19 06:20 12/18/19 06:20 Labs: Abnormal Lab Results - Last 24 Hours (Table) 12/18/19 12/18/19 12/18/19 Range/Units 06:20 11:40 17:11 Carbon Dioxide 21.4 L (21.6-31.8) mmol/L Creatinine 1.9 H (0.6-1.5) mg/dL Est GFR (CKD-EPI)AfAm 44.1 L (60.0-200.0) Est GFR (CKD-EPI)NonAf 38.0 L (60.0-200.0) Glucose 264 H (70-110) mg/dL POC Glucose (mg/dL) 296 H 307 H (75-99) mg/dL Calcium 8.4 L (8.7-10.3) mg/dL Urine Glucose (UA) (Negative) 12/18/19 12/18/19 Range/Units 20:58 21:10 Carbon Dioxide (21.6-31.8) mmol/L Creatinine (0.6-1.5) mg/dL Est GFR (CKD-EPI)AfAm (60.0-200.0) Est GFR (CKD-EPI)NonAf (60.0-200.0) Glucose (70-110) mg/dL POC Glucose (mg/dL) 232 H (75-99) mg/dL Calcium (8.7-10.3) mg/dL Urine Glucose (UA) 4+ H (Negative) Microbiology - Last 24 Hours (Table) 12/17/19 16:05 Gram Stain - Preliminary Hand - Right Wound Culture - Preliminary 12/17/19 16:05 Gram Stain - Preliminary Hand - Right Wound Culture - Preliminary 12/16/19 14:02 Blood Culture - Preliminary Blood No Growth after 48 hours Assessment and Plan Assessment: 59 yo male pod 2 hypothenar eminence abscess drainage with CTR. Plan: 1. Pain control 2. ROM as tolerated of R hand, Hand therapy to start. 3. R/o ulnar artery aneurysm with CT angio of hand and wrist today if kidneys can handle. MRI done does not show any masses or aneurysm, but not ideal test. Pt unable to have yesterday due to kidney function. 4. DVT ppx 5. Will follow
[2019-12-19] MEDS: INSULIN ASPART (NovoLOG) 100 UNIT/ML VIAL SQ SCH ×4 (08:28→21:17)
[2019-12-19] MEDS: amLODIPine 10 MG TAB PO SCH (08:29)
[2019-12-19] MEDS: lisinopriL 20 MG TAB PO SCH (08:29)
[2019-12-19] MEDS: INSULIN DETEMIR (LEVEMIR) 100 UNIT/ML SYR SQ SCH (08:29)
[2019-12-19] MEDS: cloNIDine HCL 0.1 MG TAB PO SCH ×3 (08:29→21:16)
[2019-12-19] MEDS: PRAVASTATIN SODIUM 40 MG TAB PO SCH (08:29)
[2019-12-19] MEDS: (Liraglutide [Victoza 3-Pak] 0.6 MG/0.1 ML Pen.Injctr) SQ SCH (08:51)
[2019-12-19] MEDS: PANTOPRAZOLE 40 MG/10 ML VIAL IVP SCH (08:51)
[2019-12-19 09:27] LABS: African American GFR (CKD) 58.6 (60.0-200.0); Non-African American GFR(CKD) 50.6 (60.0-200.0)
[2019-12-19 12:19] LABS: Glucose,Whole Blood 257 mg/dL (75-99)
[2019-12-19 15:38] LABS: Basophils # (A) 0.1 k/uL (0-0.2); Basophils % (A) 1 %; Eosinophils # (A) 0.7 k/uL (0-0.7); Eosinophils % (A) 10 %; HGB 11.1 gm/dL (13.0-17.5); Lymphocytes # (A) 1.9 k/uL (1.0-4.8); Lymphocytes % (A) 30 %; MCHC 31.7 g/dL (31.0-37.0); MCV 88.2 fL (80.0-100.0); Mean Platelet Volume 9.3; Monocytes # (A) 0.3 k/uL (0-1.0); Monocytes % (A) 5 %; Neutrophils # (A) 3.3 k/uL (1.3-7.7); Neutrophils % (A) 52 %; Platelet Count 312 k/uL (150-450); RBC 3.96 m/uL (4.30-5.90); RDW 13.4 % (11.5-15.5); WBC 6.3 k/uL (3.8-10.6)
[2019-12-19 15:47] LABS: African American GFR (CKD) 57 (>60 ml/min/1.73 sqM); Anion Gap 5 mmol/L; Blood Urea Nitrogen 20 mg/dL (9-20); Calcium 8.9 mg/dL (8.4-10.2); Carbon Dioxide 23 mmol/L (22-30); Chloride 113 mmol/L (98-107); Glucose 77 mg/dL (74-99); Non-African American GFR(CKD) 49 (>60 ml/min/1.73 sqM); Potassium 4.3 mmol/L (3.5-5.1); Sodium 141 mmol/L (137-145)
[2019-12-19] MEDS: VANCOMYCIN 1,750 MG in SODIUM CHLORIDE 0.9% 500 ML 500 ML IVPB SCH (16:05)
[2019-12-19] MEDS: ACETAMINOPHEN TAB 325 MG TAB PO PRN ×2 (16:23→22:45)
[2019-12-19 17:19] LABS: Glucose,Whole Blood 327 mg/dL (75-99)
[2019-12-19 20:56] VITALS: TEMP 97.9
[2019-12-19 20:57] LABS: Glucose,Whole Blood 333 mg/dL (75-99)
--- NOTE | 2019-12-20 00:16 | PN ---
PROGRESS NOTE DATE OF SERVICE: 12/19/2019 I am covering for Dr. Velasquez. This 59-year-old gentleman who was admitted with surgery for hypothenar abscess is being closely monitored. No chest pain. No palpitations. No fever. Hand MRI is recommended. Patient on broad spectrum IV antibiotics. Cultures are negative so far. PHYSICAL EXAMINATION: The patient is alert and oriented x3. Pulse 69, blood pressure 155/83, respiration 15, temperature 97.7, pulse ox 98% on room air. HEENT: Conjunctivae normal. NECK: No jugular venous distention. CARDIOVASCULAR: S1, S2 muffled. RESPIRATORY SYSTEM: Breath sounds diminished at the bases. No rhonchi. No crackles. ABDOMEN: Soft and nontender. Right hand, status post surgery. LABS: WBC 6.3, hemoglobin 11.1, creatinine is 1.54. ASSESSMENT: 1. Right hypothenar abscess with carpal tunnel involvement, status post incision and drainage with sepsis with failure of outpatient treatment, present on admission. 2. Increased WBC. 3. Anemia, normocytic. 4. Accelerated hypertension with hypertensive urgency. 5. Hyponatremia. 6. Increased creatinine with acute renal failure acute tubular necrosis with prerenal factors. 7. Diabetes mellitus, type 2. 8. Degenerative joint disease bilateral shoulder. 9. Obesity with body mass index of 36. 10.FULL CODE. RECOMMENDATIONS AND DISCUSSION: Recommend to continue current medications, continue symptomatic treatment. Continue the broad-spectrum IV antibiotics. Monitor closely. Otherwise Dr. Velasquez will follow tomorrow. MMODL / IJN: [id number] /
--- NOTE | 2019-12-20 04:44 | PN ---
PROGRESS NOTE DATE OF SERVICE: 12/19/2019 REASON FOR FOLLOW UP: Right hand abscess. INTERVAL HISTORY: The patient is currently afebrile. He is breathing comfortably. Denies having any chest pain or cough. No nausea, no vomiting. No abdominal pain. Overall pain and discomfort to the right hand has decreased. PHYSICAL EXAMINATION: Blood pressure 165/79 with a pulse of 67, temperature 97.9. He is 99% on room air. General description is a middle-aged male up in the bed in no distress. RESPIRATORY SYSTEM: Unlabored breathing, clear to auscultation anteriorly. HEART: S1, S2. Regular rate and rhythm. ABDOMEN: Soft, no tenderness. Right hand is currently dressed up. No obvious drainage on the dressing. LABS: Wound cultures currently pending. DIAGNOSTIC IMPRESSION AND PLAN: Patient with right hand abscess, status post drainage. Culture is pending. Continue with vancomycin while waiting for the cultures to finalize. Continue supportive care. MMODL / IJN: [id number] / MTDD
[2019-12-20 07:12] LABS: Glucose,Whole Blood 158 mg/dL (75-99)
[2019-12-20] MEDS: INSULIN DETEMIR (LEVEMIR) 100 UNIT/ML SYR SQ SCH (08:13)
[2019-12-20] MEDS: INSULIN ASPART (NovoLOG) 100 UNIT/ML VIAL SQ SCH ×2 (08:13→12:51)
[2019-12-20] MEDS: PANTOPRAZOLE 40 MG/10 ML VIAL IVP SCH (08:14)
[2019-12-20] MEDS: (Liraglutide [Victoza 3-Pak] 0.6 MG/0.1 ML Pen.Injctr) SQ SCH (08:14)
[2019-12-20] MEDS: lisinopriL 20 MG TAB PO SCH (08:14)
[2019-12-20] MEDS: PRAVASTATIN SODIUM 40 MG TAB PO SCH (08:14)
[2019-12-20] MEDS: cloNIDine HCL 0.1 MG TAB PO SCH (08:14)
[2019-12-20] MEDS: amLODIPine 10 MG TAB PO SCH (08:14)
[2019-12-20 10:20] LABS: African American GFR (CKD) 63.7 (60.0-200.0)
[2019-12-20] MEDS ORDERED: glipiZIDE 10 MG TAB PO SCH (10:45)
[2019-12-20 12:37] LABS: Glucose,Whole Blood 224 mg/dL (75-99)
--- NOTE | 2019-12-20 12:42 | P.PN ---
Subjective Progress Note Date: 12/20/19 This is a 59-year-old gentleman with medical history of diabetes mellitus, hypertension, obesity admitted with worsening right wrist and hand edema. Reports started 3 weeks ago. Proceeded to his PCP's office on Friday, received Rocephin 1 g injection and started on Bactrim. Uric acid reported as negative from PCP office. Extremity edema worsened. Denies numbness or tingling. Positive fine motor of affected extremity. Denies pain. Denies fever. Denies trauma. T-max 99.4, and ABC 11.5. Creatinine 2.09. CRP elevated, 18. X-ray reported no acute fracture or dislocation of the right wrist with overlying soft tissue unremarkable. Venous Doppler of right upper extremity reported no evidence of DVT or superficial venous thrombus, ulnar side of the volar base of hand, subcutaneous edema, subcutaneous focal fluid collection measuring 3.2 x 2.0 x 0.6 cm. IV antibiotics initiated. 12/20/2019 maintained on IV antibiotics, afebrile, normal WBC, cultures pending. Hand MRI report is subcutaneous edema around the fingers, no fracture, no soft tissue mass, does not confirm or exclude ulnar artery aneurysm. Renal function improved with creatinine down to 1.4. Pain controlled. Denies chest pain, palpitations or shortness of breath. Objective - Vital Signs Vital signs: Vital Signs Temp 97.9 F 12/19/19 20:55 Pulse 77 12/19/19 20:55 Resp 18 12/19/19 23:40 BP 165/79 12/19/19 20:55 Pulse Ox 99 12/19/19 20:55 Intake & Output 12/19/19 12/20/19 12/20/19 18:59 06:59 18:59 Intake Total 600 Balance 600 Intake: Oral 600 Other: Voiding Method Toilet Toilet # Voids 3 1 1 - Exam VITAL SIGNS: As above GENERAL: Sitting up in chair, no acute distress HEENT: Conjunctivae normal. eyes normal. Oral mucosa moist. CARDIOVASCULAR: S1, S2 regular.No murmur RESPIRATION: Unlabored, Breath sounds diminished in the bases. ABDOMEN: Soft, nontender . No guarding. no masses palpable. Positive Bowel sounds. EXTREMITIES: Right wrist and hand dressing/Leoncio wrap clean dry and intact. Exposed digits soft. Bilateral lower extremities with no edema. no swelling. PSYCHIATRY: Alert and oriented X3, mood and affect normal. NERVOUS SYSTEM: Cranial N 2-12 grossly normal. Moves all 4 limbs. No focal deficits. Strength and sensation grossly intact.. Skin: Warm and dry, no rash. - Labs CBC & Chem 7: 12/19/19 04:39 12/20/19 04:39 Labs: Abnormal Lab Results - Last 24 Hours (Table) 12/19/19 12/19/19 12/19/19 Range/Units 04:39 04:39 12:15 RBC 3.96 L (4.30-5.90) m/uL Hgb 11.1 L (13.0-17.5) gm/dL Hct 35.0 L (39.0-53.0) % Chloride 113 H (98-107) mmol/L Creatinine 1.54 H (0.66-1.25) mg/dL Est GFR (CKD-EPI)NonAf (60.0-200.0) POC Glucose (mg/dL) 257 H (75-99) mg/dL 12/19/19 12/19/19 12/20/19 Range/Units 17:18 20:56 04:39 RBC (4.30-5.90) m/uL Hgb (13.0-17.5) gm/dL Hct (39.0-53.0) % Chloride (98-107) mmol/L Creatinine (0.66-1.25) mg/dL Est GFR (CKD-EPI)NonAf 55.0 L (60.0-200.0) POC Glucose (mg/dL) 327 H 333 H (75-99) mg/dL 12/20/19 Range/Units 07:10 RBC (4.30-5.90) m/uL Hgb (13.0-17.5) gm/dL Hct (39.0-53.0) % Chloride (98-107) mmol/L Creatinine (0.66-1.25) mg/dL Est GFR (CKD-EPI)NonAf (60.0-200.0) POC Glucose (mg/dL) 158 H (75-99) mg/dL Microbiology - Last 24 Hours (Table) 12/17/19 16:05 Anaerobic Culture - Preliminary Hand - Right 12/17/19 16:05 Anaerobic Culture - Preliminary Hand - Right 12/17/19 16:05 Gram Stain - Final Hand - Right Wound Culture - Final 12/17/19 16:05 Gram Stain - Final Hand - Right Wound Culture - Final 12/16/19 14:02 Blood Culture - Preliminary Blood No Growth after 72 hours Assessment and Plan Assessment: Sepsis secondary to right hypothenar abscess with carpal tunnel involvement, status post I&D with right carpal tunnel release, failed outpatient treatment Leukocytosis secondary to above, resolved Acute renal failure, possibly medication induced, patient had been on Bactrim Diabetes mellitus Accelerated Hypertension Hypotension Degenerative joint disease, bilateral shoulders Obesity, BMI 36 Plan: Continue on current medication regime ,monitoring and symptomatic treatment. Cultures pending with IV antibiotics as per ID. IV fluid hydration . CTA of right hand and wrist as per Orthopedics to evaluate ulnar artery, pending renal function improvement. Close monitoring of renal function with repeat labs ordered for tomorrow. The impression and plan of care has been dictated as directed. : I performed a history and examination of this patient, discussed the same with the dictator. I agree with the dictator's note ,documented as a scribe. Any additional findings or plans will be noted.
--- NOTE | 2019-12-20 13:21 | P.PN ---
Progress Note - Text Progress Note Date: 12/20/19 Patient was seen and examined today was feeling better. He states his pain is better in his right hand. He is able to move all fingers without any issues. Denies any other problems. Denies fevers chills shortness breath or chest pain. Vital signs stable patient is afebrile general patient overnight answers. Well- nourished well-hydrated is no acute distress. Upper septic. Right extremity exam: Extremities exam and dressing is clean dry and intact patient has full range of motion of DIP PIP and MCP joints of the right hand. He has brisk capillary refill which is less than 2 seconds in all fingertips. He has intact light touch and pinprick sensation in the C5 to 2 100 nerve distribution and median radial ulnar nerve distribution and 2. contact as well. He has positive and palpable radial as well as ulnar pulses. Compartments soft and compressible. Incision is clean dry and intact. Assessment: Postop day 3 from irrigation and debridement with carpal tunnel release of right upper extremity and right hip hyperthenar eminence. Plan: Appreciate medicine and ID wrecks. Continue with IV antibiotics as desired. Deferred ID for final recommendation Maintain dressing clean dry and intact may remove at postop day 5. Pain control as needed. MRI reviewed no evidence of any other processes at this time or pathology. Would recommend fine up in office in 2 weeks for reevaluation. This was discussed with the patient is comfortable with this plan of care.
[2019-12-20 13:29] VITALS: BP 144/78; PULSE 67; RESP 16
--- NOTE | 2019-12-20 14:56 | P.DS ---
Providers Date of admission: 12/16/19 15:11 Expected date of discharge: 12/20/19 Attending physician: Nestor Velasquez Consults: 12/16/19 15:12 Consult Physician Routine Consulting Provider: Vaibhav Cintron Consult Reason/Comments: Concern for septic joint Do you want consulting provider notified?: Yes Consult Physician Urgent Consulting Provider: Mat Saldana Consult Reason/Comments: Rule out septic joint Do you want consulting provider notified?: Already Contacted Primary care physician: Nestor Velasquez Hospital Course: Final Diagnoses: Sepsis secondary to right hypothenar abscess with carpal tunnel involvement, status post I&D with right carpal tunnel release, failed outpatient treatment Leukocytosis secondary to above, resolved Acute renal failure, possibly medication induced, patient had been on Bactrim Diabetes mellitus Accelerated Hypertension Hypotension Degenerative joint disease, bilateral shoulders Obesity, BMI 36 Hospital course:This is a 59-year-old gentleman with medical history of diabetes mellitus, hypertension, obesity admitted with worsening right wrist and hand edema. Reports started 3 weeks ago. Proceeded to his PCP's office on Friday, received Rocephin 1 g injection and started on Bactrim. Uric acid reported as negative from PCP office. Extremity edema worsened. Denies numbness or tingling. Positive fine motor of affected extremity. Denies pain. Denies fever. Denies trauma. T-max 99.4, and ABC 11.5. Creatinine 2.09. CRP elevated, 18. X-ray reported no acute fracture or dislocation of the right wrist with overlying soft tissue unremarkable. Venous Doppler of right upper extremity reported no evidence of DVT or superficial venous thrombus, ulnar side of the volar base of hand, subcutaneous edema, subcutaneous focal fluid collection measuring 3.2 x 2.0 x 0.6 cm. IV antibiotics initiated. 12/20/2019 maintained on IV antibiotics, afebrile, normal WBC, cultures pending. Hand MRI report is subcutaneous edema around the fingers, no fracture, no soft tissue mass, does not confirm or exclude ulnar artery aneurysm. Renal function improved with creatinine down to 1.4. Pain controlled. Denies chest pain, palpitations or shortness of breath. Patient cleared by orthopedic surgery for discharge. Patient will be discharged home today pending final DC recommendations and clearance from infectious disease. Final culture results to be faxed to PCP, orthopedic surgery and ID. Outpatient follow-up labs ordered. CTA of right hand and wrist as per Orthopedics to evaluate ulnar artery, pending renal function improvement. The impression and plan of care has been dictated as directed. : I performed a history and examination of this patient, discussed the same with the dictator. I agree with the dictator's note ,documented as a scribe. Any additional findings or plans will be noted. Patient Condition at Discharge: Stable Plan - Discharge Summary Discharge Rx Participant: No New Discharge Prescriptions: New Cephalexin [Keflex] 500 mg PO Q6HR #28 cap cloNIDine HCL [Catapres] 0.1 mg PO TID #30 tab glipiZIDE [Glucotrol] 10 mg PO AC-BID #60 tab amLODIPine [Norvasc] 10 mg PO DAILY #30 tab Pantoprazole [Protonix] 40 mg PO DAILY #30 tablet. lisinopriL [Zestril] 20 mg PO DAILY #30 tab Continue Liraglutide [Victoza 3-Carl] 1.2 mg SQ DAILY Pravastatin Sodium [Pravachol] 40 mg PO DAILY Insulin Glargine,Hum.rec.anlog [Toujeo Max Solostar] 44 units SQ DAILY Discontinued Sulfamethox-Tmp 800-160Mg [Bactrim DS 800-160 mg] 1 tab PO Q12HR Lisinopril-Hctz 20-25 mg [Zestoretic 20-25] 1 tab PO DAILY glipiZIDE/METFORMIN HCL [glipiZIDE/METFORMIN HCL 5-500 mg] 2 tab PO 5XD Discharge Medication List Insulin Glargine,Hum.rec.anlog [Toujeo Max Solostar] 44 units SQ DAILY 12/16/19 [History] Liraglutide [Victoza 3-Carl] 1.2 mg SQ DAILY 12/16/19 [History] Pravastatin Sodium [Pravachol] 40 mg PO DAILY 12/16/19 [History] Cephalexin [Keflex] 500 mg PO Q6HR #28 cap 12/20/19 [Rx] Pantoprazole [Protonix] 40 mg PO DAILY #30 tablet. 12/20/19 [Rx] amLODIPine [Norvasc] 10 mg PO DAILY #30 tab 12/20/19 [Rx] cloNIDine HCL [Catapres] 0.1 mg PO TID #30 tab 12/20/19 [Rx] glipiZIDE [Glucotrol] 10 mg PO AC-BID #60 tab 12/20/19 [Rx] lisinopriL [Zestril] 20 mg PO DAILY #30 tab 12/20/19 [Rx] Follow up Appointment(s)/Referral(s): Nestor Velasquez DO [Primary Care Provider] - 3 Days Mat Saldana DO [Doctor of Osteopathic Medicine] - 2 Weeks Vaibhav Cintron MD [STAFF PHYSICIAN] - 10 Days Ambulatory/Diagnostic Orders: Complete Blood Count w/diff [LAB.AMB] Time Frame: 3 Days, Location: None Selected Activity/Diet/Wound Care/Special Instructions: Orthopedic discharge instructions: 1. Daily dressing changes, avoid excess use of the hand 2. Keep incision covered and dry while showering 3. Plantar follow-up with Dr. Saldana in the outpatient setting in 1 week CTA of right hand and wrist as per Orthopedics to evaluate ulnar artery, pending renal function improvement. Fax final culture results to Dr. Cintron, Dr. Velasquez Discharge Disposition: HOME SELF-CARE
[2019-12-20] MEDS ORDERED: VANCOMYCIN TROUGH DUE 1 EACH MISC MISCELLANE ONE (15:00)
--- NOTE | 2019-12-20 15:18 | PN ---
PROGRESS NOTE DATE OF SERVICE: 12/20/2019 REASON FOR FOLLOWUP: Right hand abscess. INTERVAL HISTORY: The patient is currently afebrile. The patient overall is feeling better, breathing comfortably. The patient denies having any chest pain or shortness of breath or cough. No nausea, no vomiting, no abdominal pain or diarrhea. Anxious to go home. PHYSICAL EXAMINATION: Blood pressure is 155/79 with a pulse of 77, temperature 97.9. He is 99% on room air. General description is a middle-aged male up in the bed in no distress. RESPIRATORY SYSTEM: Unlabored breathing. Clear to auscultation anteriorly. HEART: S1, S2. Regular rate and rhythm. ABDOMEN: Soft. No tenderness. LABS: Creatinine is 1.4. The anaerobic cultures from the right hand are currently no growth. DIAGNOSTIC IMPRESSION AND PLAN: Patient admitted to hospital with right hand pain and swelling with concern for an underlying abscess, status post drainage. Culture has been negative for any resistant pathogen. Patient is anxious to go home. Antibiotic will be switched to oral Keflex 500 mg p.o. q.6 hours for a week and close outpatient followup. MMODL / IJN: [id number] /
--- NOTE | 2019-12-20 15:24 | CDI ---
Documentation Clarification Form Date: 12/20/2019 02:56:10 PM From: Giovanna uClver RN CCDS Admit Date: 12/16/2019 03:11:00 PM Patient Name: Huber Mason Visit Number: [id number] Discharge Date: ATTENTION: The Clinical Documentation Specialists (CDI) and [facility] Coding Staff appreciate your assistance in clarifying documentation. Please respond to the clarification below the line at the bottom and electronically sign. The CDI & [facility] Coding staff will review the response and follow-up if needed. Please note: Queries are made part of the Legal Health Record. If you have any questions, please contact the author of this message via ITS. Dr. Mat Saldana Per your operative note, a debridement was performed on hyperthenar abscess of the right hand. 12/16 History/Risk Factors: 59-year-old male presents to the ED for right wrist and hand pain. Medical history: DM and HTN Clinical Indicators: 12/15: B/P 173/84; HR: 88; Temp: 98.2; RR: 20; SpO2 99% ra 12/15 US Right hand: Ulnar side of the volar base of the hand, there is subcuataneous edema and subcutaneous focal fluid collection measuring approximately 3.2 x 2.0 x 0.6cm Treatment: 12/16 Incision and drainage of hyperthenar abscess right hand with a knife and curet and irrigation of skin and soft tissue. Carpal tunnel release right. 12/16 Vancomycin Ivpb Five elements required for accurate and compliant documentation of a debridement: 1. Technique used (e.g., excisional, excised, cutting, etc.) 2. Instrument(s) used (e.g., scalpel, curette, etc.) Curet and knife 3. Nature of the tissue removed (e.g., necrotic, devitalized tissues, non- viable tissue, etc.) 4. Appearance and size of the wound (e.g., down to fresh bleeding tissue, 7cm x 10cm, etc.) 5. Depth of the debridement* (e.g., skin, subcutaneous tissue, fascia, muscle, bone, etc.) Subcutaneous In order to capture the severity of condition and code the appropriate procedure; could you please document the missing elements and if Excisional or Non- excisional : Excisional debridement (the removal of necrotic, devitalized tissue or slough by means of cutting away of tissue) Non-excisional debridement (the removal of necrotic, devitalized tissue or slough by means of flushing, brushing, or washing. (Irrigation) Other; please specify Unable to determine (Last Revision: June 2017) Excisional debridement of hypothenar eminence with the removal of necrotic fat. (the removal of necrotic, devitalized tissue or slough by means of cutting away of tissue) [facility]
[2019-12-21] MEDS ORDERED: PANTOPRAZOLE 40 MG TABLET PO SCH (09:00)
== END 2019-12-20 17:31 | disposition home or self-care (01) | DRG 853 ==
LOC: EC 12:55 → 6NMEDSUR 15:11
PROVIDERS: ADMIT Family Medicine; ATTEND Family Medicine
PROC: 0KBC0ZZ Excision of Right Hand Muscle, Open Approach (ICD-10-PCS; principal; 2019-12-17 08:30)
PROC: 01N50ZZ Release Median Nerve, Open Approach (ICD-10-PCS; principal; 2019-12-17 08:30)
DX: A41.9 Sepsis, unspecified organism (principal); N17.0 Acute kidney failure with tubular necrosis; E87.1 Hypo-osmolality and hyponatremia; L02.413 Cutaneous abscess of right upper limb; L02.511 Cutaneous abscess of right hand; E11.65 Type 2 diabetes mellitus with hyperglycemia; D64.9 Anemia, unspecified; E66.9 Obesity, unspecified; Z79.4 Long term (current) use of insulin; I16.0 Hypertensive urgency; G56.01 Carpal tunnel syndrome, right upper limb; I10 Essential (primary) hypertension; M19.012 Primary osteoarthritis, left shoulder; M19.011 Primary osteoarthritis, right shoulder; Z68.36 Body mass index [BMI] 36.0-36.9, adult; Z79.899 Other long term (current) drug therapy; Z83.3 Family history of diabetes mellitus
CPT/HCPCS: 36415; 80048; 80053; 80306; 81003; 82565; 83605; 83735; 84550; 85025; 86140; 87040; 87070; 87075; 87102; 87205; 88305; 96361; 96365; 96375; 99285

== ENCOUNTER 2023-02-15 19:18 | Emergency (ER) | payer BC ==
[2023-02-15] MEDS ORDERED: SODIUM CHLORIDE 0.9% 1,000 ML IV STA (19:34)
--- NOTE | 2023-02-15 19:35 | ED ---
Altered Mental Status HPI <Candie Hood Berto - Last Filed: 02/15/23 22:45> - General Source: family, RN notes reviewed, old records reviewed Mode of arrival: wheelchair Limitations: altered mental status, physical limitation - History of Present Illness MD Complaint: altered mental status, confusion -: hour(s) Severity: moderate Consistency of Symptoms: waxing and waning Treatments Prior to Arrival: IV fluid <Robel Prince - Last Filed: 03/02/23 13:54> - General Chief Complaint: Neuro Symptoms/Deficit Stated Complaint: confussion - History of Present Illness Initial Comments: This is a 62-year-old male to the emergency department today patient stay. Presents today for evaluation of altered mental status. Patient was borderline skin tonight he drove down to [place] locally. Patient called his and stated that he does not feel well and she did go pick him up. Patient himself is unable to answer questions here in the emergency room. He does suffer from diabetes. Patient has no headache, no recent medication changes. Patient's blood sugar has not been running high (Robel Prince) - Related Data Home Medications Medication Instructions Recorded Confirmed Insulin Glargine,Hum.rec.anlog 56 units SQ DAILY 12/16/19 02/15/23 [Toanastacia Reddy] Pravastatin Sodium [Pravachol] 40 mg PO DAILY 12/16/19 02/15/23 Dapagliflozin Propanediol [Farxiga] 10 mg PO DAILY 02/15/23 02/15/23 Lisinopril-Hctz 20-25 mg 1 tab PO DAILY 02/15/23 02/15/23 [Zestoretic 20-25] Multivitamins, Thera [Multivitamin 1 tab PO DAILY 02/15/23 02/15/23 (formulary)] Semaglutide [Ozempic] 2 mg SQ MO 02/15/23 02/15/23 Sildenafil Citrate 50 mg PO DAILY PRN 02/15/23 02/15/23 Previous Rx's Medication Instructions Recorded amLODIPine [Norvasc] 10 mg PO DAILY #30 tab 12/20/19 glipiZIDE [Glucotrol] 10 mg PO AC-BID #60 tab 12/20/19 Allergies Allergy/AdvReac Type Severity Reaction Status Date / Time No Known Allergies Allergy Verified 02/15/23 20:56 Review of Systems ROS Other: All systems not noted in ROS Statement are negative. <Candie Hood Berto - Last Filed: 02/15/23 22:45> ROS Other: All systems not noted in ROS Statement are negative. <Robel Prince - Last Filed: 03/02/23 13:54> ROS Statement: Those systems with pertinent positive or pertinent negative responses have been documented in the HPI. Past Medical History Past Medical History: Diabetes Mellitus, Hypertension History of Any Multi-Drug Resistant Organisms: None Reported Past Surgical History: Orthopedic Surgery Additional Past Surgical History / Comment(s): yamileth shoulder, 2001 r knee surgery, left eye surgery 04/2022 Past Anesthesia/Blood Transfusion Reactions: No Reported Reaction Past Psychological History: No Psychological Hx Reported Smoking Status: Never smoker Past Alcohol Use History: None Reported Past Drug Use History: None Reported - Past Family History Mother Family Medical History: Diabetes Mellitus <Robel Prince - Last Filed: 03/02/23 13:54> General Exam Limitations: altered mental status General appearance: alert, in no apparent distress Head exam: Present: atraumatic, normocephalic, normal inspection Eye exam: Present: normal appearance, PERRL, EOMI. Absent: scleral icterus, conjunctival injection, periorbital swelling ENT exam: Present: normal exam, mucous membranes moist Neck exam: Present: normal inspection. Absent: tenderness, meningismus, lymphadenopathy Respiratory exam: Present: normal lung sounds bilaterally. Absent: respiratory distress, wheezes, rales, rhonchi, stridor Cardiovascular Exam: Present: regular rate, normal rhythm, normal heart sounds. Absent: systolic murmur, diastolic murmur, rubs, gallop, clicks GI/Abdominal exam: Present: soft, normal bowel sounds. Absent: distended, tenderness, guarding, rebound, rigid Extremities exam: Present: normal inspection, full ROM, normal capillary refill. Absent: tenderness, pedal edema, joint swelling, calf tenderness Back exam: Present: normal inspection Neurological exam: Present: alert, oriented X3, CN II-XII intact Psychiatric exam: Present: normal affect, normal mood Skin exam: Present: warm, dry, intact, normal color. Absent: rash <Robel Prince - Last Filed: 03/02/23 13:54> Course <BrandieAriel alarconramiro Llanos - Last Filed: 03/02/23 13:54> Vital Signs 02/15/23 02/15/23 02/15/23 19:25 19:45 20:00 Temperature 98.6 F Pulse Rate 83 81 72 Respiratory 16 23 20 Rate Blood Pressure 146/81 144/66 144/66 O2 Sat by Pulse 99 100 100 Oximetry 02/15/23 02/15/23 02/15/23 20:15 20:30 20:45 Temperature Pulse Rate 73 72 74 Respiratory 20 18 16 Rate Blood Pressure 151/74 146/76 145/77 O2 Sat by Pulse 99 99 100 Oximetry 02/15/23 02/15/23 02/15/23 21:00 21:15 21:30 Temperature Pulse Rate 77 72 80 Respiratory 17 18 18 Rate Blood Pressure 151/77 147/76 O2 Sat by Pulse 100 99 98 Oximetry 02/15/23 02/15/23 02/15/23 21:45 22:00 22:15 Temperature Pulse Rate 75 79 76 Respiratory 18 18 18 Rate Blood Pressure 149/75 154/78 157/84 O2 Sat by Pulse 99 98 99 Oximetry - Reevaluation(s) Reevaluation #1: 02/15/23 20:14 Medical records reviewed (Robel Prince) Reevaluation #2: Patient has no recurrent hypoglycemia here in the emergency department Patient is able to eat and drink, feels well altered mental status has resolved (Robel Prince) Reevaluation #3: Patient informed results questions answered (Robel Prince) Reevaluation #4: 02/15/23 20:14 Was pt. sent in by a medical professional or institution (, PA, PROCESS DESIGN CHEMICAL ENGINEER, urgent care, hospital, or fci...) When possible be specific @ -no Did you speak to anyone other than the patient for history (EMS, parent, family, police, friend...)? What history was obtained from this source @ -no Did you review nursing and triage notes (agree or disagree)? Why? @ -agree Are old charts reviewed (outside hosp., previous admission, EMS record, old EKG, old radiological studies, urgent care reports/EKG's, fci records)? Report findings @ -yes Differential Diagnosis (chest pain, altered mental status, abdominal pain women, abdominal pain men, vaginal bleeding, weakness, fever, dyspnea, syncope, headache, dizziness, GI bleed, back pain, seizure, CVA, palpatations, mental health, musculoskeletal)? @ -prior EKG interpreted by me (3pts min.). @ -yes X-rays interpreted by me (1pt min.). @ -no CT interpreted by me (1pt min.). @ -yes negative for acute disease U/S interpreted by me (1pt. min.). @ -no What testing was considered but not performed or refused? (CT, X-rays, U/S, labs )? Why? @ -none What meds were considered but not given or refused? Why? @ -none Did you discuss the management of the patient with other professionals (professionals i.e. , PA, PROCESS DESIGN CHEMICAL ENGINEER, lab, RT, psych nurse, social science professor, charting clerk, teacher, staff air defense officer, shelter case manager)? Give summary @ -no Was smoking cessation discussed for >3mins.? @ -no Was critical care preformed (if so, how long)? @ -no Were there social determinants of health that impacted care today? How? (Homelessness, low income, unemployed, alcoholism, drug addiction, transportation, low edu. Level, literacy, decrease access to med. care, long term, rehab)? @ -none Was there de-escalation of care discussed even if they declined (Discuss DNR or withdrawal of care, Hospice)? DNR status @ -no What co-morbidities impacted this encounter? (DM, HTN, Smoking, COPD, CAD, Cancer, CVA, ARF, Chemo, Hep., AIDS, mental health diagnosis, sleep apnea, morbid obesity)? @ -none Was patient admitted / discharged? Hospital course, mention meds given and route, prescriptions, significant lab abnormalities, going to OR and other pertinent info. @ - 70 female to the emergency department for evaluation of this syncopal event prior to arrival. Patient presents today for evaluation of a syncopal event with no cause found. Patient has no complaints currently feels well and can be discharged Discharge Undiagnosed new problem with uncertain prognosis? @ -no Drug Therapy requiring intensive monitoring for toxicity (Heparin, Nitro, Insulin, Cardizem)? @ -no Were any procedures done? @ -no Diagnosis/symptom? @ -Altered mental status, hypoglycemia Acute, or Chronic, or Acute on Chronic? @ -Acute Uncomplicated (without systemic symptoms) or Complicated (systemic symptoms)? @ -Complicated Side effects of treatment? @ -no Exacerbation, Progression, or Severe Exacerbation? @ -exacerbation Poses a threat to life or bodily function? How? (Chest pain, USA, VT, pneumonia, PE, COPD, DKA, ARF, appy, cholecystitis, CVA, Diverticulitis, Homicidal, Suicidal, threat to staff... and all critical care pts) @ -yes severe hypoglycemia with altered mental status (Robel Prince) Reevaluation #5: Differential Syncope: Valvular disease, hypertrophic cardiomyopathy, pulmonary embolism, tamponade, tachycardia, bradycardia, VT, hypovolemia, hemorrhage, dissection, anemia, in tracranial hemorrhage, seizure, hypoglycemia, carbon monoxide poisoning, this is not meant to be an all-inclusive list. (Robel Prince) Medical Decision Making - Lab Data Result diagrams: 02/15/23 19:39 02/15/23 19:39 <Candie Hood - Last Filed: 02/15/23 22:45> - Lab Data Result diagrams: 02/15/23 19:39 02/15/23 19:39 - EKG Data -: EKG Interpreted by Me (EKG is sinus 81 TN 155 QRS 88 QTc 416) - Radiology Data Radiology results: report reviewed (CT brain CT angios had neck is negative for acute disease), image reviewed <Robel Prince - Last Filed: 03/02/23 13:54> - Medical Decision Making 62 male to the emergency department today. Patient presents today for evaluation regards to altered mental status. Patient is found in the ER here to have hypoglycemia with Whipple's triad, altered mental status and hypoglycemia found by significant improvement in symptoms resolved (Robel Prince) - Lab Data Lab Results 02/15/23 02/15/23 02/15/23 Range/Units 19:39 19:39 19:39 WBC 10.3 (3.8-10.6) k/uL RBC 5.14 (4.30-5.90) m/uL Hgb 14.2 (13.0-17.5) gm/dL Hct 43.2 (39.0-53.0) % MCV 83.9 (80.0-100.0) fL MCH 27.7 (25.0-35.0) pg MCHC 33.0 (31.0-37.0) g/dL RDW 14.1 (11.5-15.5) % Plt Count 329 (150-450) k/uL MPV 7.3 Neutrophils % 68 % Lymphocytes % 26 % Monocytes % 3 % Eosinophils % 2 % Basophils % 0 % Neutrophils # 7.0 (1.3-7.7) k/uL Lymphocytes # 2.6 (1.0-4.8) k/uL Monocytes # 0.4 (0-1.0) k/uL Eosinophils # 0.2 (0-0.7) k/uL Basophils # 0.0 (0-0.2) k/uL PT 10.4 (10.0-12.5) sec INR 0.9 (<1.2) APTT 26.6 (22.0-30.0) sec Sodium (137-145) mmol/L Potassium (3.5-5.1) mmol/L Chloride (98-107) mmol/L Carbon Dioxide (22-30) mmol/L Anion Gap mmol/L BUN (9-20) mg/dL Creatinine (0.66-1.25) mg/dL Est GFR (CKD-EPI)AfAm (>60 ml/min/1.73 sqM) Est GFR (CKD-EPI)NonAf (>60 ml/min/1.73 sqM) Glucose (74-99) mg/dL POC Glucose (mg/dL) (70-110) mg/dL POC Glu Specialty Transformer Assembler ID Calcium (8.4-10.2) mg/dL Total Bilirubin (0.2-1.3) mg/dL AST (17-59) U/L ALT (4-49) U/L Alkaline Phosphatase (38-126) U/L Ammonia (<30) umol/L Creatine Kinase (55-170) U/L Troponin I (0.000-0.034) ng/mL Total Protein (6.3-8.2) g/dL Albumin (3.5-5.0) g/dL Urine Color Colorless Urine Appearance Clear (Clear) Urine pH 6.0 (5.0-8.0) Ur Specific [place] 1.012 (1.001-1.035) Urine Protein Negative (Negative) Urine Glucose (UA) 3+ H (Negative) Urine Ketones Negative (Negative) Urine Blood Negative (Negative) Urine Nitrite Negative (Negative) Urine Bilirubin Negative (Negative) Urine Urobilinogen <2.0 (<2.0) mg/dL Ur Leukocyte Esterase Negative (Negative) Urine Opiates Screen Not Detected (NotDetected) Ur Oxycodone Screen Not Detected (NotDetected) Urine Methadone Screen Not Detected (NotDetected) Ur Propoxyphene Screen Not Detected (NotDetected) Ur Barbiturates Screen Not Detected (NotDetected) U Tricyclic Antidepress Not Detected (NotDetected) Ur Phencyclidine Scrn Not Detected (NotDetected) Ur Amphetamines Screen Not Detected (NotDetected) U Methamphetamines Scrn Not Detected (NotDetected) U Benzodiazepines Scrn Not Detected (NotDetected) Urine Cocaine Screen Not Detected (NotDetected) U Marijuana (THC) Screen Not Detected (NotDetected) Serum Alcohol mg/dL 02/15/23 02/15/23 02/15/23 Range/Units 19:39 19:39 19:39 WBC (3.8-10.6) k/uL RBC (4.30-5.90) m/uL Hgb (13.0-17.5) gm/dL Hct (39.0-53.0) % MCV (80.0-100.0) fL MCH (25.0-35.0) pg MCHC (31.0-37.0) g/dL RDW (11.5-15.5) % Plt Count (150-450) k/uL MPV Neutrophils % % Lymphocytes % % Monocytes % % Eosinophils % % Basophils % % Neutrophils # (1.3-7.7) k/uL Lymphocytes # (1.0-4.8) k/uL Monocytes # (0-1.0) k/uL Eosinophils # (0-0.7) k/uL Basophils # (0-0.2) k/uL PT (10.0-12.5) sec INR (<1.2) APTT (22.0-30.0) sec Sodium 141 (137-145) mmol/L Potassium 3.9 (3.5-5.1) mmol/L Chloride 104 (98-107) mmol/L Carbon Dioxide 24 (22-30) mmol/L Anion Gap 13 mmol/L BUN 29 H (9-20) mg/dL Creatinine 1.87 H (0.66-1.25) mg/dL Est GFR (CKD-EPI)AfAm 44 (>60 ml/min/1.73 sqM) Est GFR (CKD-EPI)NonAf 38 (>60 ml/min/1.73 sqM) Glucose 37 L* (74-99) mg/dL POC Glucose (mg/dL) (70-110) mg/dL POC Glu Specialty Transformer Assembler ID Calcium 9.3 (8.4-10.2) mg/dL Total Bilirubin 0.5 (0.2-1.3) mg/dL AST 29 (17-59) U/L ALT 23 (4-49) U/L Alkaline Phosphatase 86 (38-126) U/L Ammonia <9 (<30) umol/L Creatine Kinase 167 (55-170) U/L Troponin I <0.012 (0.000-0.034) ng/mL Total Protein 7.2 (6.3-8.2) g/dL Albumin 4.3 (3.5-5.0) g/dL Urine Color Urine Appearance (Clear) Urine pH (5.0-8.0) Ur Specific [place] (1.001-1.035) Urine Protein (Negative) Urine Glucose (UA) (Negative) Urine Ketones (Negative) Urine Blood (Negative) Urine Nitrite (Negative) Urine Bilirubin (Negative) Urine Urobilinogen (<2.0) mg/dL Ur Leukocyte Esterase (Negative) Urine Opiates Screen (NotDetected) Ur Oxycodone Screen (NotDetected) Urine Methadone Screen (NotDetected) Ur Propoxyphene Screen (NotDetected) Ur Barbiturates Screen (NotDetected) U Tricyclic Antidepress (NotDetected) Ur Phencyclidine Scrn (NotDetected) Ur Amphetamines Screen (NotDetected) U Methamphetamines Scrn (NotDetected) U Benzodiazepines Scrn (NotDetected) Urine Cocaine Screen (NotDetected) U Marijuana (THC) Screen (NotDetected) Serum Alcohol <10 mg/dL 02/15/23 02/15/23 Range/Units 19:45 20:41 WBC (3.8-10.6) k/uL RBC (4.30-5.90) m/uL Hgb (13.0-17.5) gm/dL Hct (39.0-53.0) % MCV (80.0-100.0) fL MCH (25.0-35.0) pg MCHC (31.0-37.0) g/dL RDW (11.5-15.5) % Plt Count (150-450) k/uL MPV Neutrophils % % Lymphocytes % % Monocytes % % Eosinophils % % Basophils % % Neutrophils # (1.3-7.7) k/uL Lymphocytes # (1.0-4.8) k/uL Monocytes # (0-1.0) k/uL Eosinophils # (0-0.7) k/uL Basophils # (0-0.2) k/uL PT (10.0-12.5) sec INR (<1.2) APTT (22.0-30.0) sec Sodium (137-145) mmol/L Potassium (3.5-5.1) mmol/L Chloride (98-107) mmol/L Carbon Dioxide (22-30) mmol/L Anion Gap mmol/L BUN (9-20) mg/dL Creatinine (0.66-1.25) mg/dL Est GFR (CKD-EPI)AfAm (>60 ml/min/1.73 sqM) Est GFR (CKD-EPI)NonAf (>60 ml/min/1.73 sqM) Glucose (74-99) mg/dL POC Glucose (mg/dL) 43 L 98 (70-110) mg/dL POC Glu Specialty Transformer Assembler ID Bousley, Waylon Bousley, Waylon Calcium (8.4-10.2) mg/dL Total Bilirubin (0.2-1.3) mg/dL AST (17-59) U/L ALT (4-49) U/L Alkaline Phosphatase (38-126) U/L Ammonia (<30) umol/L Creatine Kinase (55-170) U/L Troponin I (0.000-0.034) ng/mL Total Protein (6.3-8.2) g/dL Albumin (3.5-5.0) g/dL Urine Color Urine Appearance (Clear) Urine pH (5.0-8.0) Ur Specific [place] (1.001-1.035) Urine Protein (Negative) Urine Glucose (UA) (Negative) Urine Ketones (Negative) Urine Blood (Negative) Urine Nitrite (Negative) Urine Bilirubin (Negative) Urine Urobilinogen (<2.0) mg/dL Ur Leukocyte Esterase (Negative) Urine Opiates Screen (NotDetected) Ur Oxycodone Screen (NotDetected) Urine Methadone Screen (NotDetected) Ur Propoxyphene Screen (NotDetected) Ur Barbiturates Screen (NotDetected) U Tricyclic Antidepress (NotDetected) Ur Phencyclidine Scrn (NotDetected) Ur Amphetamines Screen (NotDetected) U Methamphetamines Scrn (NotDetected) U Benzodiazepines Scrn (NotDetected) Urine Cocaine Screen (NotDetected) U Marijuana (THC) Screen (NotDetected) Serum Alcohol mg/dL Disposition Time of Disposition: 22:47 <Candie Hood A - Last Filed: 02/15/23 22:45> Is patient prescribed a controlled substance at d/c from ED?: No <Robel Prince - Last Filed: 03/02/23 13:54> Clinical Impression: Hypoglycemia, Altered mental status, Weakness Disposition: HOME SELF-CARE Condition: Good Instructions (If sedation given, give patient instructions): Non-diabetic Hypoglycemia (ED) Additional Instructions: Have your primary care doctor complete ultrasounds of your carotids to monitor your carotid disease. You will need an ultrasound of your thyroid. Cut down on your insulin to possibly 40-44 units daily. Discuss this with your doctor. Return for any new or worsening symptoms Referrals: Nestor Velasquez DO [Primary Care Provider] - 1-2 days
[2023-02-15 19:46] LABS: Glucose,Whole Blood 43 mg/dL (70-110)
[2023-02-15] MEDS ORDERED: DEXTROSE 50% SYRINGE 50 ML IVP STA (19:46)
[2023-02-15 19:47] VITALS: TEMP 98.6
[2023-02-15 19:58] LABS: Basophils % (A) 0 %; Eosinophils # (A) 0.2 k/uL (0-0.7); Eosinophils % (A) 2 %; HCT 43.2 % (39.0-53.0); HGB 14.2 gm/dL (13.0-17.5); Lymphocytes # (A) 2.6 k/uL (1.0-4.8); Lymphocytes % (A) 26 %; MCH 27.7 pg (25.0-35.0); MCV 83.9 fL (80.0-100.0); Mean Platelet Volume 7.3; Monocytes # (A) 0.4 k/uL (0-1.0); Monocytes % (A) 3 %; Neutrophils % (A) 68 %; Platelet Count 329 k/uL (150-450); RBC 5.14 m/uL (4.30-5.90); RDW 14.1 % (11.5-15.5); WBC 10.3 k/uL (3.8-10.6)
[2023-02-15 20:11] LABS: ALT 23 U/L (4-49); AST 29 U/L (17-59); African American GFR (CKD) 44 (>60 ml/min/1.73 sqM); Albumin 4.3 g/dL (3.5-5.0); Alcohol <10 mg/dL; Alkaline Phosphatase 86 U/L (38-126); Anion Gap 13 mmol/L; Blood Urea Nitrogen 29 mg/dL (9-20); Calcium 9.3 mg/dL (8.4-10.2); Carbon Dioxide 24 mmol/L (22-30); Chloride 104 mmol/L (98-107); Creatine Kinase 167 U/L (55-170); Non-African American GFR(CKD) 38 (>60 ml/min/1.73 sqM); Potassium 3.9 mmol/L (3.5-5.1); Sodium 141 mmol/L (137-145); Total Bilirubin 0.5 mg/dL (0.2-1.3); Total Protein 7.2 g/dL (6.3-8.2)
[2023-02-15 20:32] LABS: INR 0.9 (<1.2); Prothrombin Time 10.4 sec (10.0-12.5)
[2023-02-15 20:33] LABS: Partial Thromboplastin Time 26.6 sec (22.0-30.0)
[2023-02-15 20:34] LABS: Glucose 37 mg/dL (74-99)
[2023-02-15 20:42] LABS: Glucose,Whole Blood 98 mg/dL (70-110)
--- NOTE | 2023-02-15 21:27 | CT ---
EXAMINATION TYPE: CT brain wo con CT DLP: Combined DLP of 1824.6 mGycm, Automated exposure control for dose reduction was used. DATE OF EXAM: 02/15/2023 8:54 PM COMPARISON: None. CLINICAL INDICATION:Male, 62 years old with history of Neuro deficit, acute, stroke suspected, AMS, r andom onset of confusion and memory loss. TECHNIQUE: Brain: Axial CT images of the brain were obtained with coronal and sagittal reformats created and rev iewed. Contrast used: None. Oral contrast used: None. FINDINGS: Extra-axial spaces: No abnormal extra-axial fluid collections. Ventricular system: Appear dilated in proportion to the degree of cerebral atrophy. Cerebral parenchyma: No increased attenuation to suggest acute intraparenchymal hemorrhage. The gra y-white matter interface appears maintained. Moderate generalized brain atrophy. Scattered hypoatte nuating areas are seen within the cerebral white matter, nonspecific but most often seen with chronic microvascular ischemic changes; moderate in degree. Cerebellum: No acute abnormality. Mass effect: No evidence of mass effect or midline shift. Intracranial vasculature: Atherosclerotic calcifications of the larger arteries near the skull base. Soft tissues: Numerous dermal calcifications. Visualized orbits: Orbital contents appear grossly intact. Reconstruction plate along the inferior right orbit may represent chronic mucosal thickening with some superimposed fluid not excluded.. Calvarium/osseous structures: No acute calvarial fracture is shown. Paranasal sinuses and mastoid air cells: Near complete opacification of the right maxillary sinus lik [place] represents MRI is more sensitive for detecting acute processes such as infarct, and may be considered if clinica lly warranted. IMPRESSION: No acute intracranial CT abnormality. Mild atrophy and chronic microvascular ischemic white matter changes. Opacification right maxillary sinus.
[2023-02-15 22:08] LABS: Amphetamine Screen,Urine Not Detected (NotDetected); Barbiturate Screen,Urine Not Detected (NotDetected); Benzodiazepines Screen,Urine Not Detected (NotDetected); Cocaine Screen,Urine Not Detected (NotDetected); Methadone Screen, Urine Not Detected (NotDetected); Opiate Screen,Urine Not Detected (NotDetected); Oxycodone Screen, Urine Not Detected (NotDetected); Phencyclidine Screen,Urine Not Detected (NotDetected); Tricyclic Antidepressant,Urine Not Detected (NotDetected); Urn Cannabinoid Scrn Not Detected (NotDetected)
--- NOTE | 2023-02-15 22:25 | CT ---
EXAMINATION TYPE: CT angio head neck DATE OF EXAM: 02/15/2023 9:08 PM COMPARISON: Same day CT head. CLINICAL INDICATION:Male, 62 years old with history of Neuro deficit, acute, stroke suspected; PHH, A MS, random onset of confusion and memory loss. TECHNIQUE: Axially acquired helical CT angiogram of the head and neck was obtained with contrast. Axi al images are supplemented with 3D reconstructions which [facility] NASCET criteria used. Contrast used: 65cc mL of Isovue 370 with IV Contrast, Oral contrast used: None. CT DLP: Combined DLP of 1824.6 mGycm, Automated exposure control for dose reduction was used. FINDINGS: CTA Neck and head: A bovine type aortic arch appears present. Mild atherosclerotic disease along the arch without significant narrowing of the branch vessels. Vertebral system appears codominant. Right vertebral shows multifocal small calcified plaques, beginning at its origin and extending distally. While the associated stenoses appear to be under 50% each, however the tandem nature may limit flow. No significant narrowing of the left vertebral in the neck is identified. Intracranially, the V4 segm ents of the vertebral arteries are patent. There is a coarse calcification in each, resulting in abou t 50% luminal narrowing. Basilar artery and auditing control clerk are patent. No evidence of dissection, hemodynamical ly significant stenosis, or aneurysm. Common carotid arteries are patent. At the carotid bifurcations and extending into the proximal ICAs, there is mixed soft and calcified plaque resulting in under 50% stenosis. ICAs thereafter appear nor alan patent to the skull base. Included lung apices are clear. Visualized heart appears normal in size. There are mild coronary kirby ry calcifications. Subcentimeter hypodense nodule of the inferior right thyroid lobe. No adenopathy v isualized. Intracranial ICAs are patent. There is relatively heavy calcification of the carotid siphons, making the degree of stenosis difficult to conciliation court judge but is probably about 50% bilaterally. MCAs, ACAs, likely a nterior communicating arteries appear patent. There appear to be small but patent bilateral posterior communicating arteries. There is no large vessel occlusion, hemodynamically significant diameter angela nosis, dissection, nor aneurysm present. Dural venous sinuses show no evidence of filling defect to suggest thrombus. No acute osseous abnormality is are seen. Reconstruction hardware along the right orbital floor and n ear complete opacification of the right maxillary sinus. Multilevel moderate degenerative disc diseas e and facet arthrosis. Predominately disc marginal osteophytes cause mild to moderate canal and neura l foraminal narrowing at C3-C4, C4-C5, C5-C6. Other: The CT appearance of the brain has not significantly changed from the earlier study. IMPRESSION: CTA neck: 1. No evidence of dissection, pseudoaneurysm, high-grade stenosis, or major vascular occlusion in th e neck. 2. Right vertebral shows multifocal small calcified plaques, beginning at its origin and extending d istally. While the associated stenoses appear to be under 50% each, however the tandem nature may wolf it flow. No significant narrowing of the left vertebral in the neck is identified. Intracranially, th e V4 segments of the vertebral arteries are patent. There is a coarse calcification in each, resultin g in about 50% luminal narrowing. 3. At the carotid bifurcations and extending into the proximal ICAs, there is mixed soft and calcifi ed plaque resulting in under 50% stenosis. ICAs thereafter appear normally patent to the skull base. 4. Subcentimeter hypodense nodule of the inferior right thyroid lobe. This could be further assessed with outpatient TFTs and ultrasound. CTA head: 1. No intracranial major vascular occlusion or significant stenosis, or sizable aneurysm detected in the limits of CTA. 2. Intracranial ICAs are patent. There is relatively heavy calcification of the carotid siphons, seugn ing the degree of stenosis difficult to conciliation court judge but is probably about 50% bilaterally.
[2023-02-15 22:27] LABS: Appearance,Urine Clear (Clear); Bilirubin,Urine Negative (Negative); Blood,Urine Negative (Negative); Color,Urine Colorless; Glucose,Urine (UA) 3+ (Negative); Ketones,Urine Negative (Negative); Leukocyte Esterase,Urine Negative (Negative); Nitrite,Urine Negative (Negative); Protein,Urine Negative (Negative); Specific Gravity,Urine 1.012 (1.001-1.035); Urobilinogen,Urine <2.0 mg/dL (<2.0)
[2023-02-15 22:29] VITALS: BP 157/84; PULSE 76; RESP 18
== END 2023-02-15 22:52 | disposition home or self-care (01) ==
LOC: EC 19:18
DX: E11.649 Type 2 diabetes mellitus with hypoglycemia without coma (principal); R41.82 Altered mental status, unspecified; R53.1 Weakness; I65.23 Occlusion and stenosis of bilateral carotid arteries; I67.82 Cerebral ischemia; I10 Essential (primary) hypertension; Z79.4 Long term (current) use of insulin; Z79.84 Long term (current) use of oral hypoglycemic drugs; Z79.899 Other long term (current) drug therapy
CPT/HCPCS: 36415; 70450; 70496; 70498; 80053; 80306; 80320; 81003; 82140; 82550; 84484; 85025; 85610; 85730; 93005; 96361; 96374; 99285